=== PATIENT | male | born 1955 | race Caucasian/White ===

== ENCOUNTER 2024-02-15 16:59 | Emergency (ER) | payer BC, SELFPAY ==
[2024-02-15 17:00] VITALS: BP 135/82
--- NOTE | 2024-02-15 18:05 | ED.GENMED ---
History of Present Illness
General
Chief Complaint: Urinary Symptoms
Source: patient
Exam Limitations: none
Time Seen by Provider: 02/15/24 18:02
Nursing documentation reviewed up to this point in time: agreed with
History of Present Illness
History of Present Illness:
Patient is a 68-year-old male who presents to the ER complaining of hematuria. Patient started with blood in his urine around 12 PM. He reports it was bright red however getting a little bit darker. He has had hematuria with each episode of
urination since 12 PM. He denies any dysuria or frequency. He does not feel that he is retaining urine. He denies any abdominal pain nausea vomiting back pain fever chills. He does have history of kidney stones in the past but reports with his
kidney stones he had pain, no pain with this hematuria.
He does note that he has been taking 800 mg of ibuprofen 3 times a day for the past 4 days because of a dental procedure recently.
He is on aspirin no other blood thinners.
Review of Systems
Review of Systems
Allergies reviewed?: Yes
All Other Systems: ROS reviewed and negative except as documented in HPI and ROS
Constitutional: Reports no symptoms; Denies fever, fatigue or chills
Cardiac: Reports no symptoms
ABD/GI: Reports no symptoms; Denies abdominal pain, nausea or vomiting
: Reports bleeding; Denies frequency or difficulty voiding
Musculoskeletal: Reports no symptoms; Denies back pain
Skin: Reports no symptoms
Neurological: Reports no symptoms
Hematologic/Lymphatic: Reports no symptoms
Psychiatric: Reports no symptoms
Phy Exam
General Physical Exam
General Presentation: no apparent distress
General age: appears stated age
General Skin: warm and dry
General Habitus: normal
General Mental: alert
General Hydration: appears well hydrated
Cardiovascular Exam
Cardiovascular Exam: regular rate/rhythm, no murmur and normal peripheral pulses
Pulmonary Exam
Pulmonary Exam: lungs clear and no respiratory distress
Gastrointestinal Exam
Gastrointestinal Exam: non tender and soft
Neurological Exam
Neurological Exam: alert and oriented x3
Musculoskeletal Exam
Musculoskeletal Exam: full ROM
Skin Exam
Skin Exam: normal color and warm/dry
Psychiatric Exam
Psychiatric Exam: normal mood/affect
Course
Orders/Labs/Results
Orders:
Orders
02/15/24 18:15
IV Insert/Care/Rem.- Treatment PRN
0.9% Sodium Chloride 1000 ml [Nss] 1,000 ml IV BOLUS
02/15/24 18:24
CBC/With Diff [Complete Blood Count/With Diff] Urgent
CMP [Comprehensive Metabolic Panel] Urgent
UA Reflex to Culture [Urinalysis Reflex To Culture] Urgent
Date Specimen was Collected: 02/15/24
Time Specimen was Collected: 18:19
Urine Microscopic Reflex Cult Urgent
Urine Culture Urgent
DEB Source: U
Specimen Description:
Date Specimen was Collected: 02/15/24
Time Specimen was Collected: 18:19
02/15/24 19:19
CT Abd/pel Without Iv Or Oral Urgent
Comment:
Reason For Exam: hematuria
Abnormal Lab Results
02/15/24
18:24
Plt Count 445 H 10^3/uL
(130-400)
Absolute Monos (auto) 1.7 H 10^3/uL
(0.1-0.6)
Lymphocytes % 19.0 L %
(20.5-51.1)
Monocytes % 16.4 H %
(1.7-9.3)
BUN 21 H mg/dl
(9-20)
Calcium 10.4 H mg/dl
(8.4-10.2)
Ur Occult Blood Reflex 4+ A
(Negative)
Leukocyte Esterase Rfl Trace A
(Negative)
Urine RBC >100 A /HPF
(0-2)
Urine WBC (Reflex) 11-15 A /HPF
(0-5)
Urine Bacteria (Reflex) Few A
(Negative)
Urine Yeast Moderate A
(Negative)
02/15/24 18:24
02/15/24 18:24
Vital Signs
Initial and Last Documented VS:
Initial Vital Signs
Temp Pulse Resp BP Pulse Ox
98.3 F 83 18 135/82 94
02/15/24 17:00 02/15/24 17:00 02/15/24 17:00 02/15/24 17:00 02/15/24 17:00
Last Documented Vital Signs
Temp Pulse Resp BP Pulse Ox
98.3 F 76 18 139/89 99
02/15/24 17:00 02/15/24 19:23 02/15/24 19:23 02/15/24 19:23 02/15/24 19:23
Analytics Specialist consulted with Physician
Analytics Specialist consulted with physician?: Yes
Name of Physician Consulted: [place]
MDM/Problems Addressed
Differential Diagnosis Includes:
Not limited to hematuria, UTI, less likely stone
MDM/Problems Addressed:
Patient is a 68 male who presented with hematuria. He does have prior history of kidney stones however had no pain today with hematuria. He has greater than 100 RBCs in urine with 11�15 white blood cells few bacteria. CT does show 6 mm stone in
the prox ureter.
Patient afebrile nontoxic remains without pain here in the ER with a normal white count normal kidney function. Case discussed with urology will DC with pain medication if needed along with Flomax we will hold off on antibiotics as discussed with
urology with close outpatient follow-up.
*Radiology
Radiology exam reviewed: radiology read reviewed
*Pulse Oximetry
Patient hypoxic: no
*Critical Care Note
Total Time (30-74mins, 75-104mins- exclusive of procedures): Not Applicable
Patient Management
Discussion with other providers: [facility] Intern (urology DR Alexander )
ED Attending Note
-
Portions of this chart may have been created with voice recognition software.� Occasional wrong word or��sound alike� substitutions may have occurred due to the inherent limitations of voice recognition software.
Discharge Plan
Departure
Patient Disposition: Home (Routine Discharge)
Date of Disposition: 02/15/24
Time of Disposition: 20:43
Patient with high blood pressure during this ER visit?: Yes
Condition: Fair
Covid-19: Not Applicable
Discharge Problem:
Kidney stone
Instructions: Kidney Stone, Adult ED, BLOOD PRESSURE
Prescriptions:
New
tamsulosin [Flomax] 0.4 mg capsule
0.4 mg PO DAILY Qty: 7 0RF
oxycodone 5 mg capsule
5 mg PO Q6H PRN (Reason: Pain) Qty: 10 0RF
Referrals:
Edward Pimentel MD [Family Provider] -
Spencer Alexander MD [Active] -
Activity Restrictions/Additional Instructions:
As discussed you have a 6 mm stone .
Stay well-hydrated. Take Flomax daily this medication was sent to your pharmacy. You may take Tylenol or ibuprofen for pain however if needed a stronger pain medication was sent to your pharmacy take only as directed. This medication is a
narcotic no driving or drinking alcohol while taking this medication in addition do not take your zolpidem (sleeping medicine ) while taking this medication.
Strain urine.
Follow-up with urology call tomorrow to make an appointment as soon as possible. Return if any worsening of symptoms or increased pain nausea vomiting fever chills.
Interventions
Interventions:
*Risk Screen - Suicide Last Done: 02/15/24 17:00
*General Assessment Last Done: 02/15/24 17:00
*Neglect/Abuse Screening Last Done: 02/15/24 17:00
*ED COVID-19 Vaccine History Last Done: 02/15/24 17:00
ED-Male Genitourinary Assessment Last Done: 02/15/24 18:28
Discharge Date and Time
Print Language: SLOVENIAN
[2024-02-15] MEDS: NSS 1000 IV (18:18)
[2024-02-15 18:37] LABS: % Basophils 1.3 % (0-2); % Eosinophils 4.1 % (0-6); % Immature Granulocytes 0.4 % (0-0.5); % Monocytes 16.4 % (1.7-9.3); % Neutrophils 58.8 % (42.2-75.2); Absolute Basophils 0.1 10^3/uL (0-0.2); Absolute Eosinophils 0.4 10^3/uL (0-0.7); Absolute Monocytes 1.7 10^3/uL (0.1-0.6); Absolute Neutrophils 6.2 10^3/uL (1.4-6.5); Hematocrit 46.2 % (39.0-52.0); Hemoglobin 15.5 g/dL (13.0-18.0); Mean Corp Hgb Conc. 33.5 g/dL (33.0-37.0); Mean Corpuscular Hgb 28.7 pg (27.0-31.0); Mean Corpuscular Volume 85.6 fL (80.0-94.0); Mean Platelet Volume 9.6 fL (7.4-10.4); Nucleated Red Blood Cells % 0 % (-); Platelet Count 445 10^3/uL (130-400); Red Cell Dist. Width 13.2 % (11.5-14.5); Urine Albumin Trace (Neg - Trace); Urine Bilirubin Negative (Negative); Urine Character Slightly Cloudy (Clear); Urine Color Amber; Urine Glucose Negative (Negative); Urine Ketone Negative (Negative); Urine Leukocyte Trace (Negative); Urine Nitrite Negative (Negative); Urine Occult Blood 4+ (Negative); Urine Urobilinogen Negative (Neg - 1+); White Blood Cell Count 10.6 10^3/uL (4.8-10.8)
[2024-02-15 18:53] LABS: ALT (SGPT) 36 U/L (0-50); AST (SGOT) 30 U/L (17-59); Albumin 4.7 g/dl (3.5-5.0); Alkaline Phosphatase 96 U/L (38-126); Blood Urea Nitrogen 21 mg/dl (9-20); Calcium 10.4 mg/dl (8.4-10.2); Carbon Dioxide 26 mmol/L (22-30); Chloride 102 mmol/L (98-107); Glucose 86 mg/dl (70-99); Potassium 4.7 mmol/L (3.5-5.1); Sodium 143 mmol/L (135-145); Total Bilirubin 0.7 mg/dl (0.2-1.3); Total Protein 7.5 g/dl (6.3-8.2); eGFR > 60.00
[2024-02-15 19:00] LABS: Urine Bacteria Few (Negative); Urine Red Blood Cell >100 /HPF (0-2); Urine Yeast Moderate (Negative)
[2024-02-15 19:23] VITALS: BP 139/89; BMI 28.4
== END 2024-02-15 20:50 | disposition home or self-care (01) ==
LOC: EMR 16:59
PROVIDERS: Nurse Practitioner; EMERGENCY PHYSICIAN Emergency Medicine; FAMILY PHYSICIAN Family Medicine
DX: N20.0 Calculus of kidney (principal); Z79.82 Long term (current) use of aspirin
CPT/HCPCS: 96360; 99284; 74176; 80053; 81003; 81015; 85025; 87086

== ENCOUNTER 2024-03-16 12:31 | Inpatient (IN) | payer MEDICARE, SELFPAY ==
[2024-03-16] VITALS (26 sets, daily range): BP systolic 70–130; BP diastolic 45–81
[2024-03-16] MEDS: NSS 1000 IV ×4 (08:37→21:53)
--- NOTE | 2024-03-16 08:45 | ED.GENMED ---
History of Present Illness
General
Chief Complaint: Cold/Flu/URI Symptoms
Source: patient
Exam Limitations: none
Time Seen by Provider: 03/16/24 08:20
Nursing documentation reviewed up to this point in time: agreed with
History of Present Illness
History of Present Illness:
68 Y/O m with h/o HLD, HTN, kidney stones
here with generalized weakness an dnear syncope.
Patient says yesterday evening after eating dinner he started feeling not well with some chills and bodyaches. He noticed a scratchy throat and had mostly dry but occasionally productive cough. He started having some intermittent nausea with
periumbilical abdominal discomfort that would come and go. He had trouble sleeping because of the nausea. He never fully vomited or had any diarrhea. Patient says this morning when he got up to use the bathroom he felt very lightheaded and felt
like he was going to pass out. He was able to hold onto the wall and sit down. His family called 911. He has no significant abdominal pain currently and the nausea has improved. He feels generally weak. He has not taken anything today for fever
but had Motrin last evening for suspected fever. He did not get the flu vaccine this year.
He has had COVID vaccines previously. Patient does have a history of kidney stones and has a known stone in the right side measuring about 6 mm and is going to have a stent placed in the next week.
Phy Exam
Physical Exam
Physical Exam:
GENERAL: Alert , in no apparent distress
HEAD: ncat
EYE: pupils equal and reactive
NECK: Supple
ENT: o/p clr, . slightly dry mouth
CARDIAC: Regular rate and rhythm . no edema
LUNGS: Clear breath sounds bilaterally, no acute respiratory distress, no wheezes/rales/rhonchi
ABDOMEN: Soft, without focal tenderness, no r/g, no cvat, normal bowel sounds
back: nontender
NEUROLOGICAL: Alert and oriented, no focal neuro deficits
SKIN: Warm and dry, skin intact.
MUSCULOSKELETAL: No edema, well perfused. neg akua's sign
PSYCH: Normal and appropriate interaction.
Course
Orders/Labs/Results
Orders:
Orders
03/16/24 08:31
0.9% Sodium Chloride 1000 ml [Nss] 1,000 ml IV BOLUS
CR Chest - 2 Views Urgent
Comment:
Reason For Exam: weakness, cough
03/16/24 08:38
COVID-19 Antigen Urgent
Source: Nasal Swab
Complete Blood Count/With Diff Urgent
Comprehensive Metabolic Panel Urgent
Lipase Urgent
Troponin I Urgent
Influenza A+B Rapid Molecular Urgent
DEB Source: Nasal Swab
Specimen Description:
03/16/24 09:15
CT Abd/pel Without Iv Or Oral Urgent
Comment:
Reason For Exam: abd pain, nauesa, hypotension; konwn kidney stone
03/16/24 09:18
Ondansetron Injectable [Zofran] 4 mg IV NOW STA
03/16/24 10:27
Electrocardiogram (*1) Urgent
Reason for Study: Fatigue / Weakness
EKG- Treatment ONCE
03/16/24 10:59
Urinalysis Reflex To Culture Urgent
Date Specimen was Collected: 03/16/24
Time Specimen was Collected: 10:52
Urine Microscopic Reflex Cult Urgent
Urine Culture Urgent
DEB Source: U
Specimen Description:
Date Specimen was Collected: 03/16/24
Time Specimen was Collected: 10:52
03/16/24 11:06
LevoFLOXacin 500 MG/100 ML [Levaquin] 500 mg in 100 ml IV NOW
Abnormal Lab Results
03/16/24 03/16/24
08:38 10:59
WBC 13.5 H 10^3/uL
(4.8-10.8)
MCHC 32.9 L g/dL
(33.0-37.0)
Abs Immat Gran (auto) 0.1 H 10^3/uL
(0-0.05)
Absolute Neuts (auto) 11.0 H 10^3/uL
(1.4-6.5)
Absolute Lymphs (auto) 1.1 L 10^3/uL
(1.2-3.4)
Absolute Monos (auto) 1.2 H 10^3/uL
(0.1-0.6)
Neutrophils % 81.9 H %
(42.2-75.2)
Lymphocytes % 7.8 L %
(20.5-51.1)
Carbon Dioxide 20 L mmol/L
(22-30)
BUN 38 H mg/dl
(9-20)
Creatinine 1.6 H mg/dL
(0.7-1.3)
Glucose 187 H mg/dl
(70-99)
Calcium 10.6 H mg/dl
(8.4-10.2)
Ur Occult Blood Reflex 4+ A
(Negative)
Leukocyte Esterase Rfl 2+ A
(Negative)
03/16/24 08:38
03/16/24 08:38
Vital Signs
Initial and Last Documented VS:
Initial Vital Signs
BP
91/58
03/16/24 08:22
Last Documented Vital Signs
Temp Pulse Resp BP Pulse Ox
36.5 C 74 17 114/72 94
03/16/24 08:24 03/16/24 11:00 03/16/24 11:00 03/16/24 11:00 03/16/24 10:03
MDM/Problems Addressed
Differential Diagnosis Includes:
infected kidney stone, flu, covid, near syncope, dehydration
MDM/Problems Addressed:
68 y/o M
known R prox ureteral 6 mm stone due for stent placement next week
here with nauesa, bodyaches, chills, waxing and waning lower abd pain since yesterday
pt als ohas a mild dry cough and a scratchy throat
he nearly passed out on his way to the bathroom todya
he feels generally weak currently
no fever
nontoxic
mildly dehydrated appearing
heart/lungs clear
abd notnender
wbc 13 with L shift
SAMMY cr 1.6 from 0.9
flu/covid neg
cxr clear
ct findings: r prox rureteral stone with hydro nad stranding; concern for infected stone
urologist messaged
empiric abx
admit to medicine
*Critical Care Note
Total Time (30-74mins, 75-104mins- exclusive of procedures): Not Applicable
ED Attending Note
-
Portions of this chart may have been created with voice recognition software.� Occasional wrong word or��sound alike� substitutions may have occurred due to the inherent limitations of voice recognition software.
Discharge Plan
Departure
Patient Disposition: Admit
Date of Disposition: 03/16/24
Time of Disposition: 11:08
Admit to: Med/Surg
Presentation/result/management discussed w/ accepting MD/DO: Hospitalist
Condition: Fair
Covid-19: Not Applicable
Discharge Problem:
SAMMY (acute kidney injury), Kidney stone, Near syncope
Prescriptions:
No Action
tamsulosin [Flomax] 0.4 mg capsule
0.4 mg PO DAILY Qty: 7 0RF
omega-3 fatty acids [Fish Oil Concentrate] 1,000 mg Capsule
2,400 mg PO DAILY
atorvastatin [Lipitor] 10 mg Tablet
10 mg PO QPM
lisinopril 20 mg Tablet
20 mg PO DAILY
Theragen Tablet
1 tab PO DAILY
aspirin 81 mg Tablet,Delayed Release (Dr/Ec)
81 mg PO DAILY
meloxicam [Mobic] 7.5 mg Tablet
15 mg PO DAILY
ibuprofen [Advil] 200 mg Tablet
400 mg PO Q8HPRN PRN (Reason: mild pain)
zolpidem [Ambien] 10 mg Tablet
5 mg PO HS
bupropion HCl [Wellbutrin XL] 300 mg Tablet Extended Release 24 Hr
300 mg PO DAILY
cholecalciferol (vitamin D3) [Vitamin D3] 125 mcg (5,000 unit) Tablet
250 mcg PO DAILY
testosterone 20.25 mg/1.25 gram (1.62 %) gel in metered-dose pump
2 pump topical DAILY
Glucosamine Chondroitin 550-30-1 mg Capsule
2 cap PO DAILY
oxycodone 5 mg tablet
5 mg PO Q8HPRN PRN (Reason: severe Pain)
Referrals:
Edward Pimentel MD [Family Provider] -
Interventions
Interventions:
*Risk Screen - Suicide Last Done: 03/16/24 08:32
*General Assessment Last Done: 03/16/24 08:32
*Neglect/Abuse Screening Last Done: 03/16/24 08:32
ED- Fall Risk Assessment Last Done: 03/16/24 08:32
*ED COVID-19 Vaccine History Last Done: 03/16/24 08:32
ED- Pulmonary Assessment Last Done: 03/16/24 08:32
Discharge Date and Time
Print Language: ERITREAN
[2024-03-16 08:52] LABS: % Basophils 0.6 % (0-2); % Eosinophils 0.5 % (0-6); % Immature Granulocytes 0.5 % (0-0.5); % Lymphocytes 7.8 % (20.5-51.1); % Monocytes 8.7 % (1.7-9.3); % Neutrophils 81.9 % (42.2-75.2); Absolute Basophils 0.1 10^3/uL (0-0.2); Absolute Eosinophils 0.1 10^3/uL (0-0.7); Absolute Immature Granulocytes 0.1 10^3/uL (0-0.05); Absolute Lymphocytes 1.1 10^3/uL (1.2-3.4); Absolute Monocytes 1.2 10^3/uL (0.1-0.6); Hematocrit 51.4 % (39.0-52.0); Hemoglobin 16.9 g/dL (13.0-18.0); Mean Corp Hgb Conc. 32.9 g/dL (33.0-37.0); Mean Corpuscular Hgb 28.5 pg (27.0-31.0); Mean Corpuscular Volume 86.8 fL (80.0-94.0); Nucleated Red Blood Cells % 0 % (-); Platelet Count 364 10^3/uL (130-400); Red Blood Cell Count 5.92 10^6/uL (4.70-6.10); Red Cell Dist. Width 13.3 % (11.5-14.5); White Blood Cell Count 13.5 10^3/uL (4.8-10.8)
[2024-03-16 09:04] LABS: COVID-19 Antigen Negative (Negative)
[2024-03-16 09:06] LABS: ALT (SGPT) 28 U/L (0-50); AST (SGOT) 24 U/L (17-59); Albumin 4.9 g/dl (3.5-5.0); Alkaline Phosphatase 98 U/L (38-126); Blood Urea Nitrogen 38 mg/dl (9-20); Calcium 10.6 mg/dl (8.4-10.2); Carbon Dioxide 20 mmol/L (22-30); Chloride 104 mmol/L (98-107); Estimated Creatinine Clearance 42 ml/min; Glucose 187 mg/dl (70-99); Lipase 72 U/L (23-300); Potassium 4.7 mmol/L (3.5-5.1); Sodium 140 mmol/L (135-145); Total Bilirubin 0.6 mg/dl (0.2-1.3); Total Protein 7.4 g/dl (6.3-8.2); eGFR 46.35
[2024-03-16 09:18] LABS: Troponin I < 0.012 ng/ml
[2024-03-16] MEDS: ZOFRAN 4 MG IV (09:36)
[2024-03-16 11:09] LABS: Urine Albumin Trace (Neg - Trace); Urine Bilirubin Negative (Negative); Urine Character Slightly Cloudy (Clear); Urine Color Yellow; Urine Glucose Negative (Negative); Urine Ketone Negative (Negative); Urine Leukocyte 2+ (Negative); Urine Nitrite Negative (Negative); Urine Occult Blood 4+ (Negative); Urine Specific Gravity 1.025 (<1.030); Urine Urobilinogen Negative (Neg - 1+)
[2024-03-16] MEDS: LEVAQUIN 100 IV (11:48)
--- NOTE | 2024-03-16 12:00 | EDRN ---
Report given to DAVID Partida in the OR.
--- NOTE | 2024-03-16 12:03 | CONS.URO ---
Consultation
-
Date/Time Consultation Performed: 03/16/24 1150
Requesting Provider: Katina
Performing Provider: Yazan
Reason for Consultation: Right ureteral stone + UTI
Medical History
History of Present Illness
Pt previously in ED on 02/14 with 6 mm right proximal ureteral stone.
Schedule for OR next week with Dr Alexander.
Dr Ambriz's note: 'Patient says yesterday evening after eating dinner he started feeling not well with some chills and bodyaches. He noticed a scratchy throat and had mostly dry but occasionally productive cough. He started having some
intermittent nausea with periumbilical abdominal discomfort that would come and go. He had trouble sleeping because of the nausea.'
Past Medical History
Past Medical History: Other ( HLD, HTN)
Social History
Tobacco: Non-smoker
Personal:
Living: With Family
Employment: Employed
Family History
Family History: Reviewed & Not Pertinent
Allergies/Home Medications
Allergies
Allergy/AdvReac Type Severity Reaction Status Date / Time
Cephalosporins Allergy Unknown Verified 02/15/24 18:18
penicillin G Allergy Unknown Verified 02/15/24 18:18
Penicillins Allergy Unknown Verified 02/15/24 18:18
Home Medications
�Medication �Instructions �Recorded �Confirmed �Type
tamsulosin 0.4 mg capsule (Flomax) 0.4 mg PO DAILY #7 caps 02/15/24 03/16/24 Rx
aspirin 81 mg tablet,delayed 81 mg PO DAILY 03/16/24 03/16/24 History
release
atorvastatin 10 mg tablet (Lipitor) 10 mg PO QPM 03/16/24 03/16/24 History
bupropion HCl 300 mg 24 hr tablet, 300 mg PO DAILY 03/16/24 03/16/24 History
extended release (Wellbutrin XL)
cholecalciferol (vitamin D3) 125 250 mcg PO DAILY 03/16/24 03/16/24 History
mcg (5,000 unit) tablet (Vitamin
D3)
glucosamine sulf dipot 2 cap PO DAILY 03/16/24 03/16/24 History
chlr,msm,chond 550 mg-C 30 mg-chino
1 mg capsule (Glucosamine
Chondroitin)
ibuprofen 200 mg tablet (Advil) 400 mg PO Q8HPRN PRN mild pain 03/16/24 03/16/24 History
lisinopril 20 mg tablet 20 mg PO DAILY 03/16/24 03/16/24 History
meloxicam 7.5 mg tablet 15 mg PO DAILY 03/16/24 03/16/24 History
omega-3 fatty acids 1,000 mg 2,400 mg PO DAILY 03/16/24 03/16/24 History
capsule
oxycodone 5 mg tablet 5 mg PO Q8HPRN PRN severe Pain 03/16/24 03/16/24 History
testosterone 2 pump topical DAILY 03/16/24 03/16/24 History
therapeutic multivitamin 1 tab PO DAILY 03/16/24 03/16/24 History
zolpidem 10 mg tablet (Ambien) 5 mg PO HS 03/16/24 03/16/24 History
Physical Exam
Vital Signs
Vital Signs
Temp Pulse Resp BP Pulse Ox
97.3 F 73 16 119/73 99
03/16/24 12:01 03/16/24 12:01 03/16/24 12:01 03/16/24 12:01 03/16/24 12:01
Lab / Testing Results
Laboratory Results
03/16/24 08:38
03/16/24 08:38
Physical Exam
adult male on ED [facility]
appears ill
mildly distressed
Neuro: Awake and Alert
Psych: Calm and Intact Judgement
Assessment / Plan
-
Right Ureteral stone: 6 mm, proximal, obstructing
suspected evolving UTI/sepsis
urgently to OR for dislodgment of right ureteral stone and placement of ureteral stent
to be admitted to hospitalists for sepsis care
anticipate discharge later this week on po abx then to return next week with Dr Alexander for definitive removal of stone
OR consent signed in presence of and ED RN
Data Reviewed
-
CT Scan: Image personally visualized and interpreted
Lab Data: Labs Reviewed
Old Records: Reviewed
--- NOTE | 2024-03-16 12:06 | W.PN.UPDATE ---
Update Note
Progress Note Update
Patient seen in the ER just prior to being called to the OR for right obstructing 5 mm ureterolithiasis.
Gen: NAD, AAOx3.
Eyes: EOMI, PERRLA, no scleral icterus.
Neck: supple.
CV: RRR, +S1/S2, no m/r/g.
Resp: CTAB, no rales, wheezes, or rhonchi.
Abd: +BS, soft, NT, ND
Skin: No rashes.
Neuro: CN 2-12 intact, non-focal.
Psych: Normal mood and affect.
-additional L NS ordered
-Levaquin being hung
-admission orders placed
-case discussed with ER and Dr. Hand
-full H&P to follow post op
--- NOTE | 2024-03-16 12:13 | W.IMMPOSTOP ---
Surgical Immed Post Op Note
-
Primary Surgeon: Yazan
Pre-op Diagnosis: Right Ureteral stone: 6 mm, proximal, obstructing with suspected evolving UTI/sepsis
Post-op Diagnosis: same
Procedure Performed: cysto, dislodgement of obstructing right ureteral stone, stent placement
Anesthesia Type: LMA
Specimen / Cultures: none
Estimated Blood Loss: none
Complications: none
Operative Findings: ebris-laden urine in bladder; purulent urine propulsed from right ureter upon alleviation of obstruction
apprised in waiting area immediately post-op
[2024-03-16 14:26] LABS: Urine Mucus Few
[2024-03-16 14:27] LABS: Urine Amorphous Seen; Urine Squamous Cell 0-2 /LPF (Few)
[2024-03-16 14:28] LABS: Urine Hyaline Cast 0-2 /LPF (0-2)
[2024-03-16 14:33] LABS: Urine Red Blood Cell 30-40 /HPF (0-2)
--- NOTE | 2024-03-16 15:28 | HPS.HSE ---
Family Physician
<Binh Gruber MD, Resident - Last Filed: 03/16/24 17:19>
-
Family Physician: Edward Pimentel
Chief Complaint
<Binh Gruber MD, Resident - Last Filed: 03/16/24 17:19>
-
Lightheadedness, Weakness
History of Present Illness
Patient is a 68 yo m with past medical history of HLD, HTN, recurrent kidney stones, depression/anxiety who presented to the ED earlier this morning with generalized weakness and lightheadedness. Yesterday, he developed lower abdominal pain and
nausea. Symptoms persisted through the night disturbing his sleep. This morning, he felt lightheaded and felt like he might experience a syncope. Family called 911 and he was brought to ED.
He denies any vomiting or diarrhea. Denies eating food from outside. Denies any fevers or chills.
Patient was recently seen in ED on 02/14 and diagnosed with 6 mm right proximal ureteral stone. He was advised to follow-up with urology clinic and OR was scheduled for him with Dr. Alexander. Plan was to proceed with stone extraction and stent
placement on 03/23.
Initial labs in ED showed leukocytosis. He was mildly hypotensive upon presentation. Abdominal CT scan showed mild RIGHT hydronephrosis and proximal hydroureter secondary to a 5 mm obstructing calculus within the proximal right ureter. Mild
perinephric and periureteral stranding. Patient was started on Levaquin and given bolus fluid. Urology consulted and patient urgently taken to OR for dislodgment of right ureteral stone and placement of ureteral stent. He is admitted and will be
followed for further management of possible urosepsis.
Medical History
<Binh Gruber MD, Resident - Last Filed: 03/16/24 17:19>
Past Medical History
Past Medical History: Reports Other (See HPI)
Additional Past Medical History:
See HPI
Past Surgical History: Reports Other
Additional Past Surgical History:
Rotator cuff tear repair, ESWL and nephrolithotomy for kidney stones (at [place])
Social History
Tobacco: Non-smoker
Alcohol: None
Drug: None
Family History
Family History: Not pertinent
Allergies / Home Medications
Allergies reflects when Allergies were last updated in [employer].
Home Medications with original date entered in [employer]
Allergy/Medication List:
Allergies
Allergy/AdvReac Type Severity Reaction Status Date / Time
Cephalosporins Allergy Unknown Verified 02/15/24 18:18
penicillin G Allergy Unknown Verified 02/15/24 18:18
Penicillins Allergy Unknown Verified 02/15/24 18:18
Home Medications
tamsulosin 0.4 mg capsule (Flomax) 0.4 mg PO DAILY #7 caps 02/15/24
aspirin 81 mg tablet,delayed release 81 mg PO DAILY 03/16/24
atorvastatin 10 mg tablet (Lipitor) 10 mg PO QPM 03/16/24
bupropion HCl 300 mg 24 hr tablet, extended release (Wellbutrin XL) 300 mg PO DAILY 03/16/24
cholecalciferol (vitamin D3) 125 mcg (5,000 unit) tablet (Vitamin D3) 250 mcg PO DAILY 03/16/24
glucosamine sulf dipot chlr,msm,chond 550 mg-C 30 mg-chino 1 mg capsule (Glucosamine Chondroitin) 2 cap PO DAILY 03/16/24
ibuprofen 200 mg tablet (Advil) 400 mg PO Q8HPRN PRN mild pain 03/16/24
lisinopril 20 mg tablet 20 mg PO DAILY 03/16/24
meloxicam 7.5 mg tablet 15 mg PO DAILY 03/16/24
omega-3 fatty acids 1,000 mg capsule 2,400 mg PO DAILY 03/16/24
oxycodone 5 mg tablet 5 mg PO Q8HPRN PRN severe Pain 03/16/24
testosterone 2 pump topical DAILY 03/16/24
therapeutic multivitamin 1 tab PO DAILY 03/16/24
zolpidem 10 mg tablet (Ambien) 5 mg PO HS 03/16/24
Review of Systems
<Binh Gruber MD, Resident - Last Filed: 03/16/24 17:19>
-
History Source: Patient
A 12 point ROS was completed and negative except as noted: Yes
Constitutional: Reports See HPI
EENT: Reports See HPI
Respiratory: Reports See HPI
Cardiac: Reports See HPI
Abdomen/GI: Reports See HPI
: Reports See HPI
Musculoskeletal: Reports See HPI
Skin: Reports See HPI
Neurological: Reports See HPI
Endocrine: Reports See HPI
Hematologic/Lymphatic: Reports See HPI
Psych: Reports See HPI
Physical Exam
<Binh Gruber MD, Resident - Last Filed: 03/16/24 17:19>
Vital Signs
Vital Signs
Temp Pulse Resp BP Pulse Ox
97.4 F 69 18 122/81 95
03/16/24 14:45 03/16/24 14:45 03/16/24 14:45 03/16/24 14:45 03/16/24 14:45
Physical Exam
General: Well Developed, No Apparent Distress and Comfortable
HEENT: NormoCephalic, Anicteric and Moist mucous membranes
Respiratory: Clear
Cardiac: S1/S2 and Regular Rhythm
GI: Soft, Non Tender, Non Distended and Normal Bowel Sounds
Musculoskeletal: No Clubbing, No Cyanosis and No Edema
Skin: Warm and Dry
Neuro: Awake, Alert, Oriented and AO x 3
Psych: Calm
Laboratory Results
<Binh Gruber MD, Resident - Last Filed: 03/16/24 17:19>
-
03/16/24 08:38
03/16/24 08:38
Laboratory Results
Total Bilirubin 0.6 mg/dl (0.2-1.3) 03/16/24 08:38
AST 24 U/L (17-59) 03/16/24 08:38
ALT 28 U/L (0-50) 03/16/24 08:38
Alkaline Phosphatase 98 U/L (38-126) 03/16/24 08:38
Troponin I < 0.012 ng/ml 03/16/24 08:38
Lipase 72 U/L (23-300) 03/16/24 08:38
Impression/Plan
<Binh Gruber MD, Resident - Last Filed: 03/16/24 17:19>
-
IMPRESSION:
Patient is a 68-year-old male with past medical history of recurrent kidney stones. Presented to ED on 02/14 with gross hematuria and was diagnosed with 6 mm right proximal ureteral stone. He was on pain controls for trial of passage until OR
date, scheduled for 03/23. Earlier this morning, he developed lightheadedness and nausea. Labs revealed leukocytosis and he was urgently taken to the OR for stent placement.
# Urosepsis possibly in the setting of infected kidney stone
-Right internal double-J nephroureteral stent placed 03/16
-Levaquin started
-Continue IV fluids
-Advance diet to regular
-Maintain O2sat> 92%, encourage incentive spirometry
-Tylenol as needed for pain
-Monitor CBC, BMP
-Follow urine culture
-Anticipate SAMMY to improve after stone removal/stent placement
# Hypertension
-Hold lisinopril for now
# Hyperlipidemia
-Continue Lipitor
# Anxiety/depression
-Continue Wellbutrin
#DVT prophylaxis
-Heparin SC
CODE STATUS full code
<Garrison Lainez MD, Resident - Last Filed: 03/16/24 16:08>
-
--- NOTE | 2024-03-16 15:38 | W.PN.UPDATE ---
Update Note
Progress Note Update
I personally performed a history and physical exam of the patient and discussed management with the resident. I reviewed the resident's note and agree with the documented findings and plan of care HPI/CC.
68-year-old male who presented with a chief complaint of upper respiratory infection symptoms. Also reported near syncope, generalized weakness, chills, myalgias, dry cough, nausea, periumbilical abdominal pain.
Gen: NAD, AAOx3.
Eyes: EOMI, PERRLA, no scleral icterus.
Neck: supple.
CV: RRR, +S1/S2, no m/r/g.
Resp: CTAB, no rales, wheezes, or rhonchi.
Abd: +BS, soft, NT, ND
Skin: No rashes.
Neuro: CN 2-12 intact, non-focal.
Psych: Normal mood and affect.
Lab Results
24 03/16/24
08:38 10:59
WBC 13.5 H
RBC 5.92
Hgb 16.9
Hct 51.4
MCV 86.8
MCH 28.5
MCHC 32.9 L
RDW 13.3
Plt Count 364
MPV 10.0
Abs Immat Gran (auto) 0.1 H
Absolute Neuts (auto) 11.0 H
Absolute Lymphs (auto) 1.1 L
Absolute Monos (auto) 1.2 H
Absolute Eos (auto) 0.1
Absolute Basos (auto) 0.1
Immature Gran % 0.5
Neutrophils % 81.9 H
Lymphocytes % 7.8 L
Monocytes % 8.7
Eosinophils % 0.5
Basophils % 0.6
Nucleated RBC % 0
Sodium 140
Potassium 4.7
Chloride 104
Carbon Dioxide 20 L
BUN 38 H
Creatinine 1.6 H
Estimated Creat Clear 42
eGFR 46.35
Glucose 187 H
Calcium 10.6 H
Total Bilirubin 0.6
AST 24
ALT 28
Alkaline Phosphatase 98
Troponin I < 0.012
Total Protein 7.4
Albumin 4.9
Lipase 72
Urine Color Yellow
Urine Clarity Slightly cloudy
Urine pH 5.0
Ur Specific Entiat 1.025
Urine Ketones Negative
Ur Occult Blood Reflex 4+ A
Urine Nitrite (Reflex) Negative
Urine Bilirubin Negative
Urine Urobilinogen Negative
Leukocyte Esterase Rfl 2+ A
Urine RBC 30-40 A
Urine WBC (Reflex) 6-10
Ur Squamous Epith Cells 0-2
Ur Urothelial Cells 3-5
Amorphous Crystals Seen
Hyaline Casts 0-2
Granular Casts 3-5
Urine Mucus Few
Urine Glucose Negative
Urine Albumin (Reflex) Trace
SARS-CoV-[address] A/P: Mild RIGHT hydronephrosis and proximal hydroureter secondary to a 5 mm obstructing calculus within the proximal right ureter. Mild perinephric and periureteral stranding.
Acute right-sided hydronephrosis, urinary tract infection, and likely right-sided pyelonephritis:
-with associated SAMMY
-Patient with multiple antibiotic allergies which, based on interview, likely are not true allergies
-Continue Levaquin for now
-aggressive IVF support
-follow UCx
--- NOTE | 2024-03-16 16:09 | PTCARENOTE ---
Pt arrived from PACU at aprox 1445. Pt admission and assessment done. Pt with no pain at the time. He will order lunch. Daughter at bedside. Call mullins within reach. Pt instructed not to get OOB without assistance.
[2024-03-16] MEDS: ASPIR LOW (ENTERIC COATED) 81 MG PO (17:17)
[2024-03-16] MEDS: LIPITOR 10 MG PO (17:17)
[2024-03-16] MEDS: FLOMAX 0.4 MG PO (17:17)
[2024-03-16] MEDS: HEPARIN 5000 UNITS SC (21:26)
[2024-03-16] MEDS: DILAUDID 0.5 MG IV (21:33)
[2024-03-16] MEDS: TYLENOL 650 MG PO (23:52)
[2024-03-17] MEDS: DILAUDID 0.5 MG IV (03:14)
[2024-03-17 03:15] VITALS: BP 125/66
[2024-03-17] MEDS: NSS 1000 IV (06:17)
[2024-03-17 06:51] LABS: Hematocrit 42.2 % (39.0-52.0); Hemoglobin 14.4 g/dL (13.0-18.0); Mean Corp Hgb Conc. 34.1 g/dL (33.0-37.0); Mean Corpuscular Hgb 29.4 pg (27.0-31.0); Mean Corpuscular Volume 86.3 fL (80.0-94.0); Mean Platelet Volume 10.1 fL (7.4-10.4); Platelet Count 320 10^3/uL (130-400); Red Blood Cell Count 4.89 10^6/uL (4.70-6.10); Red Cell Dist. Width 13.7 % (11.5-14.5); White Blood Cell Count 12.8 10^3/uL (4.8-10.8)
[2024-03-17 07:17] LABS: Blood Urea Nitrogen 28 mg/dl (9-20); Calcium 8.8 mg/dl (8.4-10.2); Carbon Dioxide 19 mmol/L (22-30); Chloride 109 mmol/L (98-107); Estimated Creatinine Clearance 75 ml/min; Glucose 144 mg/dl (70-99); Potassium 4.6 mmol/L (3.5-5.1); Sodium 139 mmol/L (135-145); eGFR > 60.00
[2024-03-17 07:56] VITALS: BP 118/76
--- NOTE | 2024-03-17 09:28 | W.PN.HOSP.TC ---
Today's Communication/Plan
-
Can transition to oral antibiotics
Medically stable for discharge later in the day
Assessment / Plan
Assessment / Plan
Patient is a 68-year-old male with past medical history of recurrent kidney stones. Presented to ED on 02/14 with gross hematuria and was diagnosed with 6 mm right proximal ureteral stone. He was on pain controls for trial of passage until OR
date, scheduled for 03/23. Earlier this morning, he developed lightheadedness and nausea. Labs revealed leukocytosis and he was urgently taken to the OR for stent placement.
# Urosepsis POA possibly in the setting of infected kidney stone
-Post-op day 2 s/p right internal double-J nephroureteral stent
-D/C IV Levaquin- Can transition to Cipro 500 BID
-Continue IV fluids
-Advanced diet to regular-tolerating well
-Maintain O2sat> 92%, encourage incentive spirometry
-Pain management
-Leukocytosis trending down
-Remains afebrile
-Urine culture-negative however pus seen in OR- Will cont AB
-SAMMY resolved after stone removal/stent placement
-Hemoglobin stable
# Hypertension
-Hold lisinopril for now
# Hyperlipidemia
-Continue Lipitor
# Anxiety/depression
-Continue Wellbutrin
#DVT prophylaxis
-Heparin SC
CODE STATUS full code
Anticipated Discharge: Within 24 hours
Subjective/Interval History
-
Date of Service: March 17, 2024
Patient is resting comfortably in bed. Mentions his urine is dark red but has not seen any blood clots. Is able to pass gas. Denies any shortness of breath, chest pain, abdominal pain. Was able to tolerate lunch and dinner and does not have any
nausea or vomiting. Remains afebrile.
Objective Data
-
Labs:
Laboratory Results
03/17/24
06:40
WBC 12.8 H
Hgb 14.4
Hct 42.2
Plt Count 320
Sodium 139
Potassium 4.6
Chloride 109 H
Carbon Dioxide 19 L
BUN 28 H
Creatinine 0.9
Glucose 144 H
Calcium 8.8 D
Vital Signs:
Vital Signs
Temp Pulse Resp BP Pulse Ox
97.8 F 74 20 118/76 94
03/17/24 07:56 03/17/24 07:56 03/17/24 07:56 03/17/24 07:56 03/17/24 07:56
I&O
03/16/24 03/17/24 03/18/24
06:59 06:59 06:59
Intake Total 3350 / 3350
Output Total 1045 / 1045
Balance 2305 / 2305
Review of Systems
-
History Source: Patient
All other systems: Reviewed and negative
Genitourinary: Reports Other (Hematuria but no blood clots)
Physical Exam
-
General: Well Developed, No Apparent Distress and Comfortable
HEENT: Normocephalic, Atraumatic, Moist Mucous Membranes and Anicteric
Respiratory: Clear to Auscultation
Cardiac: Regular Rhythm and S1/S2
GI: Soft, Nontender, Nondistended and Normal Bowel Sounds
Musculoskeletal: No Clubbing, No Cyanosis and No Edema
Skin: Warm and Dry
Neuro: Awake, Alert, Oriented and AO x 3
--- NOTE | 2024-03-17 10:04 | CM ---
Patient seen at bedside.
IMM explained & signed. In chart.
IA completed
right internal double-J nephroureteral stent
Lives in a 2 story home with , 2 steps to enter, flight to second floor
PLOF: Independent, drives, no assistive device
DME: walker (his 's)
Denies food/housing/transportation/utilities insecurities
Denies VN - has had outpatient rehab in past at [facility]
PCP: Dr. Bañuelos [place]
Pharmacy: [facility]
PLAN: home, no needs
--- NOTE | 2024-03-17 10:14 | W.PN.UPDATE ---
Update Note
Progress Note Update
I saw and evaluated the patient. I reviewed the resident�s note and agree with findings and plan as documented in the resident�s note.
Patient reports hematuria. Denies abdominal pain.
Gen: NAD, AAOx3.
Eyes: EOMI, PERRLA, no scleral icterus.
Neck: supple.
CV: Remains RRR, +S1/S2, no m/r/g.
Resp: Remains CTAB, no rales, wheezes, or rhonchi.
Abd: Remains +BS, soft, NT, ND
Skin: No rashes.
Neuro: CN 2-12 intact, non-focal.
Psych: Normal mood and affect.
CT A/P: Mild RIGHT hydronephrosis and proximal hydroureter secondary to a 5 mm obstructing calculus within the proximal right ureter. Mild perinephric and periureteral stranding.
Acute right-sided hydronephrosis, urinary tract infection, and likely right-sided pyelonephritis:
-with associated SAMMY, now resolved with IVFs
-with non-AG met acidosis, change IVFs to D5W with 75meq NaHCO3/L
-Patient with multiple antibiotic allergies which, based on interview, likely are not true allergies
-despite UCx being NG, continue Levaquin as puss was expressed during R ureteral stenting pending infectious disease consult
Other problems:
Essential hypertension: Holding home ACEi
Hyperlipidemia: cont statin
Anxiety/depression: Continue Wellbutrin
FULL/Heparin
[2024-03-17] MEDS: TYLENOL 650 MG PO (10:53)
[2024-03-17] MEDS: HEPARIN 5000 UNITS SC ×2 (10:53→20:22)
[2024-03-17] MEDS: SODIUM BICARBONATE 1075 MEQ IV (10:55)
[2024-03-17] MEDS: ASPIR LOW (ENTERIC COATED) 81 MG PO (10:58)
[2024-03-17] MEDS: WELLBUTRIN XL (24 hour extended release) 300 MG PO (10:58)
[2024-03-17] MEDS: FLOMAX 0.4 MG PO (10:59)
[2024-03-17 11:32] VITALS: BP 120/72
[2024-03-17] MEDS: LEVAQUIN 100 IV (12:04)
--- NOTE | 2024-03-17 12:17 | W.DCSUMMARY ---
Addendum entered and electronically signed by Rikki Nugent MD 03/18/24 12:09:
Read, reviewed, and agree. See same day progress note for additional details.
Original Note:
Discharge Summary
Discharge Data
Date of Admission: 03/16/24
Date of Discharge: 03/18/24
-
Pending Results: No
Hospital Course
Patient is a 68-year-old male with past medical history of HLD, HTN, and recurrent nephrolithiasis. He previously presented to ED on 02/14 with gross hematuria and was diagnosed with 6 mm right proximal ureteral stone. He was placed on pain
controls for trial of passage until OR date, which was scheduled for 03/23. However, on 03/16, he developed lightheadedness and nausea and presented to the ED again. Initial labs in ED showed leukocytosis and SAMMY. He was mildly hypotensive upon
presentation. Abdominal CT scan showed mild RIGHT hydronephrosis and proximal hydroureter secondary to a 5 mm obstructing calculus within the proximal right ureter. with associated mild perinephric and periureteral stranding. Urine culture was
sent and he was started on Levaquin and IV fluid. Urology was consulted and patient was urgently taken to OR for dislodgment of right ureteral stone and placement of ureteral stent. He was then admitted for further management of SAMMY and possible
urosepsis.
Immediate postop report noted debris-laden urine in bladder with purulent urine propulsing from right ureter upon alleviation of obstruction but urine culture came back negative. However, ID was consulted and decision was made to continue with
antibiotics due to observation findings. IV Levaquin and fluids were continued during admission. SAMMY resolved after stone removal/stent placement; however, patient had metabolic acidosis post-procedure and was treated with bicarb drip. He remained
afebrile and leukocytosis trended down. Hemoglobin remained stable after surgery.
Today, SAMMY and metabolic acidosis have resolved. Patient is medically stable for discharge to home. He has been advised to contact Dr. Hand's office today or tomorrow to set an appointment for stent removal. He has also been given
instructions to continue Levaquin for an additional 4 days.
Discharge Plan
-
Patient Disposition: Home (Routine Discharge)
Discharge Diagnosis/Procedures: Obstructing right ureteral calculus associated with right hydronephrosis, acute kidney injury
Condition: Good
Diet: No restrictions
Activity: As tolerated
Driving Restrictions: As prior to admission
Bathing Restrictions: None
Instructions: Kidney stones in adults, Kidney stone diet
Referrals:
Spencer Hand MD [Active] - None
Edward Pimentel MD [Family Provider] - in less than 1 week
Spencer Alexander MD [Active] - (surgery as already scheduled)
Prescriptions:
New
acetaminophen 325 mg Tablet
650 mg PO Q8HPRN PRN (Reason: mild pain/[place]/temp> 100.4F) 7 Days Qty: 20 0RF
levofloxacin 500 mg Tablet
500 mg PO DAILY 4 Days Qty: 4 0RF
Continued
tamsulosin [Flomax] 0.4 mg capsule
0.4 mg PO DAILY Qty: 7 0RF
omega-3 fatty acids 1,000 mg Capsule
2,400 mg PO DAILY
atorvastatin [Lipitor] 10 mg Tablet
10 mg PO QPM
lisinopril 20 mg Tablet
20 mg PO DAILY
therapeutic multivitamin Tablet
1 tab PO DAILY
aspirin 81 mg Tablet,Delayed Release (Dr/Ec)
81 mg PO DAILY
zolpidem [Ambien] 10 mg Tablet
5 mg PO HS
bupropion HCl [Wellbutrin XL] 300 mg Tablet Extended Release 24 Hr
300 mg PO DAILY
cholecalciferol (vitamin D3) [Vitamin D3] 125 mcg (5,000 unit) Tablet
250 mcg PO DAILY
testosterone 20.25 mg/1.25 gram (1.62 %) gel in metered-dose pump
2 pump topical DAILY
Glucosamine Chondroitin 550-30-1 mg Capsule
2 cap PO DAILY
Discontinued
meloxicam 7.5 mg Tablet
15 mg PO DAILY
ibuprofen [Advil] 200 mg Tablet
400 mg PO Q8HPRN PRN (Reason: mild pain)
oxycodone 5 mg tablet
5 mg PO Q8HPRN PRN (Reason: severe Pain)
Discharge Orders:
Discharge Patient (As Directed); Ordered 03/18/24
Ordered By: Binh Gruber
Discharge Date and Time
Print Language: BELIZEAN
--- NOTE | 2024-03-17 12:35 | CON.ID ---
Consultation
-
Date/Time Consultation Requested: March 17, 2024 1021
Date/Time Consultation Performed: March 17, 2024 1235
Requesting Provider: Dr. Rikki Nugent
Performing Provider: Dr. Sherrill Larose
Reason for Consultation: Pyelonephritis
Chief Complaint / Past History
Chief Complaint
dizziness and weakness
History of Present Illness
68-year-old male with history of hypertension, nephrolithiasis who noted gross hematuria in February for which he presented to the ER February 14, CAT scan showed 6 mm stone in proximal right ureter without significant hydronephrosis. He was
discharged on tamsulosin and arranged for urology to place stent. However the evening of March 15, he felt extremely weak and dizzy. Also reports some flulike symptoms with chills and bodyaches. Was having abdominal discomfort. No flank pain.
He presented to the ER morning of March 16. White count 13.5. He was in SAMMY. Repeat CAT scan showed obstructing right kidney stone. He was taken to the OR the same day status post cystoscopy, dislodgment of the stone and stent placement. Of
note purulent urine seen at time of urological procedure. However the urethral urine culture resulted as no growth. Patient feels much improved today. No further abdominal discomfort or dizziness.
Past History
Additional Past Medical History:
Hypertension
Dyslipidemia
Nephrolithiasis with history of ESWL and nephrolithotomy
Anxiety/depression
Allergy History:
Cephalosporins Allergy (Verified 02/15/24 18:18)
Unknown
penicillin G Allergy (Verified 02/15/24 18:18)
Unknown
Penicillins Allergy (Verified 02/15/24 18:18)
Unknown
Medications Reviewed: Yes
Current Antibiotics:
Levofloxacin
Social History
Tobacco: Non-Smoker
Alcohol: None
Drug: None
Family History
Family History: Not Pertinent
Review of Systems
Review of Systems
General: Chills and Change in Appetite
HEENT: Negative Sinus Problems or Pharyngitis
Cardiovascular: Negative Chest Pain or Dyspnea
Respiratory: Negative Dyspnea or Cough
Gasteroenterology: Negative Nausea, Vomiting or Diarrhea
Genital / Urological: Negative Dysuria or Flank Pain
Endocrine: Weakness
All systems: All other systems were reviewed and were negative
Vital Signs
Temp Pulse Resp BP Pulse Ox
98 F 78 20 120/72 94
03/17/24 11:32 03/17/24 11:32 03/17/24 11:32 03/17/24 11:32 03/17/24 11:32
Physical Exam
Physical Exam
Constitutional: No Acute Distress and Comfortable
Eyes: No Conjunctival Hemorrhage and Sclera Anicteric
Cardiovascular: Regular Rate and S1/S2
Pulmonary: Clear
Gastrointestinal: Soft, Non Tender, Non Distended and Normal Bowel Sounds
Genito-Urinary: Negative Suprapubic Tenderness or CVA Tenderness
Neurological: AO x 3
Lab / Diagnostic Study Results
03/17/24 06:40
03/17/24 06:40
Abs Immat Gran (auto) 0.1 10^3/uL (0-0.05) H 03/16/24 08:38
Absolute Neuts (auto) 11.0 10^3/uL (1.4-6.5) H 03/16/24 08:38
Absolute Lymphs (auto) 1.1 10^3/uL (1.2-3.4) L 03/16/24 08:38
Absolute Monos (auto) 1.2 10^3/uL (0.1-0.6) H 03/16/24 08:38
Absolute Basos (auto) 0.1 10^3/uL (0-0.2) 03/16/24 08:38
Immature Gran % 0.5 % (0-0.5) 03/16/24 08:38
Neutrophils % 81.9 % (42.2-75.2) H 03/16/24 08:38
Lymphocytes % 7.8 % (20.5-51.1) L 03/16/24 08:38
Monocytes % 8.7 % (1.7-9.3) 03/16/24 08:38
Eosinophils % 0.5 % (0-6) 03/16/24 08:38
Basophils % 0.6 % (0-2) 03/16/24 08:38
Ur Squamous Epith Cells 0-2 /LPF (Few) 03/16/24 10:59
Microbiology Results
Micro:
03/16/24 10:59 Urine Culture - Final
Urine NO GROWTH
03/16/24 08:38 Influenza Types A & B (YINKA) - Final
Nasal Swab Negative for Influenza A & B, NAAT
Negative results must be combined with clinical observations
and patient history.
Nucleic Acid Amplification test (NAAT)performed on the
[employer] platform.
03/16/24 CT a/p: . Mild RIGHT hydronephrosis and proximal hydroureter secondary to a 5 mm obstructing calculus within the proximal right ureter. Mild perinephric and periureteral stranding.
Assessment / Plan
# Right obstructive uropathy s/p stent placement 03/16
# Suspected complicated UTI. Purulent urine seen at time of stent placement -> not sent for cx.
Urethal Ucx negative
Change IV levofloxacin(d2) to po levofloxacin 500mg qd through 03/22/24.
Call if any questions.
[2024-03-17 15:45] VITALS: BP 116/68
[2024-03-17] MEDS: LIPITOR 10 MG PO (18:04)
[2024-03-17] MEDS: SENOKOT-S 1 TABLET PO (20:23)
[2024-03-17 22:36] VITALS: BP 121/61
[2024-03-18] MEDS: SODIUM BICARBONATE 1075 MEQ IV (01:18)
[2024-03-18 06:22] LABS: Hematocrit 44.1 % (39.0-52.0); Hemoglobin 14.5 g/dL (13.0-18.0); Mean Corp Hgb Conc. 32.9 g/dL (33.0-37.0); Mean Corpuscular Hgb 28.8 pg (27.0-31.0); Mean Corpuscular Volume 87.7 fL (80.0-94.0); Mean Platelet Volume 10.4 fL (7.4-10.4); Platelet Count 324 10^3/uL (130-400); Red Blood Cell Count 5.03 10^6/uL (4.70-6.10); Red Cell Dist. Width 13.8 % (11.5-14.5); White Blood Cell Count 11.5 10^3/uL (4.8-10.8)
[2024-03-18 06:49] LABS: Blood Urea Nitrogen 25 mg/dl (9-20); Calcium 9.2 mg/dl (8.4-10.2); Carbon Dioxide 27 mmol/L (22-30); Chloride 103 mmol/L (98-107); Estimated Creatinine Clearance 67 ml/min; Glucose 102 mg/dl (70-99); Potassium 4.5 mmol/L (3.5-5.1); Sodium 140 mmol/L (135-145); eGFR > 60.00
--- NOTE | 2024-03-18 07:47 | W.PN.HOSP.TC ---
Today's Communication/Plan
-
Patient is stable for discharge today
Assessment / Plan
Assessment / Plan
Patient is a 68-year-old male with past medical history of recurrent kidney stones. Presented to ED on 02/14 with gross hematuria and was diagnosed with 6 mm right proximal ureteral stone. He was on pain controls for trial of passage until OR
date, scheduled for 03/23. Earlier this morning, he developed lightheadedness and nausea. Labs revealed leukocytosis and he was urgently taken to the OR for stent placement.
# Urosepsis POA possibly in the setting of infected kidney stone
-Post-op day 3 s/p right internal double-J nephroureteral stent
-Urine culture-negative however pus seen in OR- Will cont AB
-Levaquin IV switched to PO- to be continued for total of 5 doses
-Advanced diet to regular-tolerating well
-Maintain O2sat> 92%, encourage incentive spirometry
-Pain management
-Leukocytosis continues to trend down
-Remains afebrile
-SAMMY after stone removal/stent placement
-Metabolic acidosis resolved after bicarb drip/IV fluids
-Hemoglobin stable
# Hypertension
-Hold lisinopril for now
# Hyperlipidemia
-Continue Lipitor
# Anxiety/depression
-Continue Wellbutrin
#DVT prophylaxis
-Heparin SC
CODE STATUS full code
Anticipated Discharge: Today
Subjective/Interval History
-
Date of Service: March 18, 2024
Patient is comfortably in bed. Mentions hematuria has decreased. No blood clots seen in urine. Denies any nausea vomiting or abdominal pain. Denies any fevers or chills.
Objective Data
-
Labs:
Laboratory Results
03/18/24
05:17
WBC 11.5 H
Hgb 14.5
Hct 44.1
Plt Count 324
Sodium 140
Potassium 4.5
Chloride 103
Carbon Dioxide 27
BUN 25 H
Creatinine 1.0
Glucose 102 H
Calcium 9.2
Vital Signs:
Vital Signs
Temp Pulse Resp BP Pulse Ox
98.7 F 74 18 121/61 94
03/17/24 22:36 03/17/24 22:36 03/17/24 22:36 03/17/24 22:36 03/17/24 22:36
I&O
03/17/24 03/18/24 03/19/24
06:59 06:59 06:59
Intake Total 3350 / 3350 3600 / 3600
Output Total 1045 / 1045 1380 / 1380
Balance 2305 / 2305 2220 / 2220
Review of Systems
-
History Source: Patient
All other systems: Reviewed and negative
Genitourinary: Reports Other (Hematuria but no blood clots)
Physical Exam
-
General: Well Developed and No Apparent Distress
HEENT: Normocephalic
Respiratory: Clear to Auscultation
Cardiac: Regular Rhythm and S1/S2
GI: Soft, Nontender, Nondistended and Normal Bowel Sounds
Musculoskeletal: No Clubbing, No Cyanosis and No Edema
Skin: Warm and Dry
Neuro: Awake, Alert, Oriented and AO x 3
[2024-03-18 08:00] VITALS: BP 165/95
[2024-03-18] MEDS: FLOMAX 0.4 MG PO (08:39)
[2024-03-18] MEDS: LEVAQUIN 500 MG PO (08:39)
[2024-03-18] MEDS: HEPARIN 5000 UNITS SC (08:39)
[2024-03-18] MEDS: ASPIR LOW (ENTERIC COATED) 81 MG PO (08:39)
[2024-03-18] MEDS: WELLBUTRIN XL (24 hour extended release) 300 MG PO (08:40)
--- NOTE | 2024-03-18 09:38 | W.PN.UPDATE ---
Update Note
Progress Note Update
I saw and evaluated the patient. I reviewed the resident�s note and agree with findings and plan as documented in the resident�s note.
No new complaints.
Gen: NAD, AAOx3.
Eyes: EOMI, PERRLA, no scleral icterus.
Neck: supple.
CV: continues to remain RRR, +S1/S2, no m/r/g.
Resp: continues to remain CTAB, no rales, wheezes, or rhonchi.
Abd: continues to remain +BS, soft, NT, ND
Skin: No rashes.
Neuro: CN 2-12 intact, non-focal.
Psych: Normal mood and affect.
CT A/P: Mild RIGHT hydronephrosis and proximal hydroureter secondary to a 5 mm obstructing calculus within the proximal right ureter. Mild perinephric and periureteral stranding.
Acute right-sided hydronephrosis, urinary tract infection, and likely right-sided pyelonephritis:
-with associated SAMMY, now resolved with IVFs
-with non-AG met acidosis, IVFs were changed to D5W with 75meq NaHCO3/L and non-AG met acidosis has now resolved
-Patient with multiple antibiotic allergies which, based on interview, likely are not true allergies
-despite UCx being NG, continue Levaquin as puss was expressed during R ureteral stenting through 03/22/24 as per ID/Dr. Larose.
Other problems:
Essential hypertension: resume home ACEi as SAMMY has resolved
Hyperlipidemia: cont statin
Anxiety/depression: Continue Wellbutrin
FULL/Heparin
Medically cleared for discharge.
Total time spent on d/c = 31 min. This included today's physical exam, progress note, review of laboratory and diagnostic data, preparation of discharge documents and prescriptions, and discussions about the pt's hospital course and discharge plan
with the patient and other medical billing coordinator involved in the patient's care.
--- NOTE | 2024-03-18 10:27 | CM ---
Pt for discharge today
Has ride home per pt
Discussed IMM
Plan - home no needs
[2024-03-18] MEDS: PREVNAR 20 0.5 ML IM (11:32)
[2024-03-18] MEDS: FLUAD (65 yr+) 2024-2025 FORMULA 0.5 ML IM (11:35)
[2024-03-18] MEDS: ZESTRIL 20 MG PO (11:37)
[2024-03-18 11:55] VITALS: BP 144/95
[2024-03-18] MEDS: TYLENOL 650 MG PO (11:55)
== END 2024-03-18 12:44 | disposition home or self-care (01) | DRG 660 ==
LOC: 2 SOUTH 12:31
PROVIDERS: Physician Assistant; ADMITTING PHYSICIAN Internal Medicine; EMERGENCY PHYSICIAN Student in an Organized Health Care Education/Training Program; FAMILY PHYSICIAN Family Medicine; OTHER PHYSICIAN Internal Medicine Infectious Disease; OTHER PHYSICIAN Specialist
PROC: 0WCR8ZZ Extirpation of Matter from Genitourinary Tract, Via Natural or Artificial Opening Endoscopic (ICD-10-PCS; 2024-03-16)
PROC: 0T768DZ Dilation of Right Ureter with Intraluminal Device, Via Natural or Artificial Opening Endoscopic (ICD-10-PCS; 2024-03-16)
DX: N20.2 Calculus of kidney with calculus of ureter (principal); E87.20 Acidosis, unspecified; N13.6 Pyonephrosis; N17.9 Acute kidney failure, unspecified; I95.9 Hypotension, unspecified; I10 Essential (primary) hypertension; E78.5 Hyperlipidemia, unspecified; F41.9 Anxiety disorder, unspecified; F32.A Depression, unspecified; Z11.52 Encounter for screening for COVID-19
CPT/HCPCS: 71046; 74018; 74176; 76000; 80048; 80053; 81003; 81015; 83690; 84484; 85025; 85027; 87086; 87502; 87811; 90662; 90677; 93005; 96361; 96374; 96375; 99285; 99406; C2617; G0008; G0009

== ENCOUNTER 2024-03-19 15:28 | Inpatient (IN) | payer MEDICARE, SELFPAY ==
[2024-03-19] VITALS (12 sets, daily range): BP systolic 118–157; BP diastolic 69–100; BMI 27.1
[2024-03-19 11:32] LABS: Glucose - Point of Care 104 mg/dl (70-99)
--- NOTE | 2024-03-19 11:56 | ED.CVA ---
History of Present Illness
General
Chief Complaint: Facial Problem
Source: patient
Exam Limitations: none
Time Seen by Provider: 03/19/24 11:31
Nursing documentation reviewed up to this point in time: agreed with
Course
Orders/Labs/Results
Orders:
Orders
03/19/24 11:43
CT Head W/o Iv Contrast Urgent
Comment:
Reason For Exam: L facial weakness
03/19/24 11:45
Electrocardiogram (*1) Urgent
Reason for Study: Other
Other Reason for Exam: stroke
EKG- Treatment ONCE
03/19/24 11:47
Complete Blood Count/With Diff Urgent
Comprehensive Metabolic Panel Urgent
Abnormal Lab Results
03/19/24
11:31
POC Glucose 104 H mg/dl
(70-99)
Vital Signs
Initial and Last Documented VS:
Initial Vital Signs
Temp Pulse Resp BP Pulse Ox
98.0 F 79 16 149/89 98
03/19/24 11:22 03/19/24 11:22 03/19/24 11:22 03/19/24 11:22 03/19/24 11:22
Last Documented Vital Signs
Temp Pulse Resp BP Pulse Ox
98.0 F 78 16 143/95 99
03/19/24 11:22 03/19/24 11:32 03/19/24 11:22 03/19/24 11:32 03/19/24 11:33
ED Attending Note
-
Portions of this chart may have been created with voice recognition software.� Occasional wrong word or��sound alike� substitutions may have occurred due to the inherent limitations of voice recognition software.
Discharge Plan
Departure
Prescriptions:
No Action
tamsulosin [Flomax] 0.4 mg capsule
0.4 mg PO DAILY Qty: 7 0RF
omega-3 fatty acids 1,000 mg Capsule
2,400 mg PO DAILY
atorvastatin [Lipitor] 10 mg Tablet
10 mg PO QPM
lisinopril 20 mg Tablet
20 mg PO DAILY
therapeutic multivitamin Tablet
1 tab PO DAILY
aspirin 81 mg Tablet,Delayed Release (Dr/Ec)
81 mg PO DAILY
zolpidem [Ambien] 10 mg Tablet
5 mg PO HS
bupropion HCl [Wellbutrin XL] 300 mg Tablet Extended Release 24 Hr
300 mg PO DAILY
cholecalciferol (vitamin D3) [Vitamin D3] 125 mcg (5,000 unit) Tablet
250 mcg PO DAILY
testosterone 20.25 mg/1.25 gram (1.62 %) gel in metered-dose pump
2 pump topical DAILY
Glucosamine Chondroitin 550-30-1 mg Capsule
2 cap PO DAILY
acetaminophen 325 mg Tablet
650 mg PO Q8HPRN PRN (Reason: mild pain/[place]/temp> 100.4F) 7 Days Qty: 20 0RF
levofloxacin 500 mg Tablet
500 mg PO DAILY 4 Days Qty: 4 0RF
Interventions
Interventions:
*Risk Screen - Suicide Last Done: 03/19/24 11:22
*General Assessment Last Done: 03/19/24 11:22
*Neglect/Abuse Screening Last Done: 03/19/24 11:22
ED- Fall Risk Assessment Last Done: 03/19/24 11:33
*ED COVID-19 Vaccine History Last Done: 03/19/24 11:22
ED- Pulmonary Assessment Last Done: 03/19/24 11:33
ED- Neurological Assessment Last Done: 03/19/24 11:33
ED- Cardiac Assessment Last Done: 03/19/24 11:33
ED Swallowing Screen Last Done: 03/19/24 11:33
Discharge Date and Time
Print Language: GERMAN
[2024-03-19 11:57] LABS: % Basophils 1.1 % (0-2); % Eosinophils 2.5 % (0-6); % Immature Granulocytes 0.6 % (0-0.5); % Lymphocytes 14.4 % (20.5-51.1); % Monocytes 10.6 % (1.7-9.3); % Neutrophils 70.8 % (42.2-75.2); Absolute Basophils 0.1 10^3/uL (0-0.2); Absolute Eosinophils 0.3 10^3/uL (0-0.7); Absolute Immature Granulocytes 0.1 10^3/uL (0-0.05); Absolute Lymphocytes 1.8 10^3/uL (1.2-3.4); Absolute Monocytes 1.3 10^3/uL (0.1-0.6); Absolute Neutrophils 8.9 10^3/uL (1.4-6.5); Hematocrit 47.3 % (39.0-52.0); Hemoglobin 16.3 g/dL (13.0-18.0); Mean Corp Hgb Conc. 34.5 g/dL (33.0-37.0); Mean Corpuscular Hgb 29.1 pg (27.0-31.0); Mean Corpuscular Volume 84.3 fL (80.0-94.0); Nucleated Red Blood Cells % 0 % (-); Platelet Count 378 10^3/uL (130-400); Red Blood Cell Count 5.61 10^6/uL (4.70-6.10); Red Cell Dist. Width 13.1 % (11.5-14.5); White Blood Cell Count 12.6 10^3/uL (4.8-10.8)
--- NOTE | 2024-03-19 11:57 | ED.GENMED ---
History of Present Illness
General
Chief Complaint: Facial Problem
Source: patient
Exam Limitations: none
Time Seen by Provider: 03/19/24 11:31
Nursing documentation reviewed up to this point in time: agreed with
History of Present Illness
History of Present Illness:
The patient is a 68-year-old man who was just discharged from [facility] after being treated for kidney stone, who reports that he woke up this morning with drooping of the left side of his face. Patient reports that he was previously
feeling well last night. He feels like his face is twisted and when his words come out, they sound slightly slurred. Patient denies any weakness in the arms and legs. He reports tearing of the left eye. Patient denies a history of Steve's palsy.
Patient denies headache and fever. He denies rash.
Past History
Past History
ED Past Medical History: HTN and Other (Kidney stones)
ED Past Surgical History: Urological
Social History
Tobacco: Non-smoker
Alcohol: Other
Drug: None
Personal:
Living: with family
Employment: Other
Family History
Family History: Other
Review of Systems
Review of Systems
Allergies reviewed?: Yes
All Other Systems: ROS reviewed and negative except as documented in HPI and ROS
Constitutional: Reports no symptoms
EENT: Reports other
Respiratory: Reports no symptoms
Cardiac: Reports no symptoms
ABD/GI: Reports no symptoms
: Reports no symptoms
Musculoskeletal: Reports no symptoms
Skin: Reports no symptoms
Neurological: Reports weakness
Endocrine: Reports no symptoms
Hematologic/Lymphatic: Reports no symptoms
Psychiatric: Reports no symptoms
Phy Exam
Physical Exam
Physical Exam:
Physical Exam
General: Obvious left facial droop. Appears well and comfortable
Neck: supple. no meningeal signs. normal psoterior pharynx
Heart: s1/s2 regular rate and rhythm
Lungs: no acute respiratory distress. clear bilaterally
Abdomen: normal bowel sounds. not tender. no CVAT
Neuro: alert and orientedx3. Left facial droop. Drooping of left forehead and eyebrow. 5 out of 5 strength in all extremities. Extraocular muscles intact. Equal sensation bilaterally.
Skin: no rash
Psychiatric: well kept. interactive and cooperative
Extremities: no edema. no calf tenderness. negative homans. good distal pulses
Course
Orders/Labs/Results
Orders:
Orders
03/19/24 11:43
CT Head W/o Iv Contrast Urgent
Comment:
Reason For Exam: L facial weakness
03/19/24 11:45
Electrocardiogram (*1) Urgent
Reason for Study: Other
Other Reason for Exam: stroke
EKG- Treatment ONCE
03/19/24 11:47
Complete Blood Count/With Diff Urgent
03/19/24 12:06
Comprehensive Metabolic Panel Urgent
Lyme Progressive Urgent
Comment: ADD ON
03/19/24 12:49
Add On- LAB Urgent
Tests Added?: lyme progressive
03/19/24 14:05
0.9% Sodium Chloride 1000 ml [Nss] 1,000 ml IV BOLUS
03/19/24 14:41
Urinalysis Reflex To Culture Urgent
Date Specimen was Collected: 03/19/24
Time Specimen was Collected: 14:46
03/19/24 15:03
Admit/Transfer Patient As Directed
Co-Sign Provider:
Level of Care: Inpatient admission
Assign to:: Telemetry
Physician / Group: stacie
Diagnosis: bells palsy, sammy
Reason for Telemetry: Arrhythmia
Date to Stop Telemetry: 03/22/24
Time to Stop Telemetry: 11:00
Reason for Hospitalization: bells palsy, sammy
Expected length of stay greater than two midnights?: Yes
ELOS- Estimated Length of Stay in days: 2
I certify the patient meets the requirements for IP care: Yes
03/19/24 15:04
Code Status As Directed
Resuscitation Status: Full Code
PRN Pain Medication Management As Directed
May give lesser potent ordered pain med per pt: Yes
preference::
Protocol:: Medication orders for pain may be administered in a
manner that supports deferring to patient preference
when the pt is:
- Requesting an ordered lesser potent pain medication.
Least to most potent pain medications are defined
as: acetaminophen < NSAID < tramadol < opioids
(morphine, oxycodone, hydromorphone).
- Requesting a lesser dose of the same medication IF
ORDERED.
- Requesting a less intrusive route of administration
if both routes are prescribed by the provider (PO <
IV).
03/19/24 15:10
Valacyclovir HCl [Valtrex] 1,000 mg PO NOW STA
03/19/24 15:11
Prednisone [Deltasone] 60 mg PO NOW STA
03/22/24 11:00
DC Protocol for Telemetry ONCE
Abnormal Lab Results
03/19/24 03/19/24 03/19/24
11:31 11:47 12:06
WBC 12.6 H 10^3/uL
(4.8-10.8)
Abs Immat Gran (auto) 0.1 H 10^3/uL
(0-0.05)
Absolute Neuts (auto) 8.9 H 10^3/uL
(1.4-6.5)
Absolute Monos (auto) 1.3 H 10^3/uL
(0.1-0.6)
Immature Gran % 0.6 H %
(0-0.5)
Lymphocytes % 14.4 L %
(20.5-51.1)
Monocytes % 10.6 H %
(1.7-9.3)
Chloride 114 H mmol/L
(98-107)
Carbon Dioxide 19 L mmol/L
(22-30)
BUN 73 H mg/dl
(9-20)
Creatinine 2.0 H mg/dL
(0.7-1.3)
Total Bilirubin 2.5 H mg/dl
(0.2-1.3)
Alkaline Phosphatase 338 H U/L
(38-126)
POC Glucose 104 H mg/dl
(70-99)
03/19/24 11:47
03/19/24 12:06
Vital Signs
Initial and Last Documented VS:
Initial Vital Signs
Temp Pulse Resp BP Pulse Ox
98.0 F 79 16 149/89 98
03/19/24 11:22 03/19/24 11:22 03/19/24 11:22 03/19/24 11:22 03/19/24 11:22
Last Documented Vital Signs
Temp Pulse Resp BP Pulse Ox
98.0 F 78 16 143/95 99
03/19/24 11:22 03/19/24 11:32 03/19/24 14:00 03/19/24 11:32 03/19/24 14:00
MDM/Problems Addressed
Differential Diagnosis Includes:
Acute CVA, Steve's palsy
MDM/Problems Addressed:
Patient presents with acute left facial weakness
Chronic conditions affecting care: HTN
Acute Exacerbation and/or Progression of Chronic Illness: HTN
*Radiology
Radiology exam reviewed: radiology read reviewed
*Pulse Oximetry
Patient hypoxic: no
*EKG
Interpreted by ED Provider?: Yes
Interpretation: normal
Comparison EKG: no comparison EKG present
Rate: normal
Rhythm: sinus
[place]: normal axis
Interval: normal interval
QRS Pattern: normal QRS
Ischemia: no ischemia
*Cable Tender Interpretation
Rate: normal
Interpretation: normal
Rhythm: sinus
*Critical Care Note
Total Time (30-74mins, 75-104mins- exclusive of procedures): Not Applicable
Data Reviewed
Review of Other/Old Records Reveals: Labs (Creatinine yesterday was 1.0) and Discharge Summary (Discharge summary reviewed from hospitalist from 03/17/2024 when patient was admitted for renal injury and kidney stone)
Source: patient and family (Daughter who is at the bedside)
Patient Management
Social determinants of health affecting care: Living situation and Strong social support
Discussion with other providers: Hospitalist
Escalation/DeEscalation of care consider admission/obs:
Given patient's increased creatinine and white blood cell count, decision made to admit the patient. Dr. Alexander made aware. Symptoms are consistent with Steve's palsy and not stroke
ED Attending Note
-
Portions of this chart may have been created with voice recognition software.� Occasional wrong word or��sound alike� substitutions may have occurred due to the inherent limitations of voice recognition software.
Discharge Plan
Departure
Patient Disposition: Admit
Date of Disposition: 03/19/24
Time of Disposition: 14:49
Admit to: Med/Surg
Presentation/result/management discussed w/ accepting MD/DO: Hospitalist
Patient with high blood pressure during this ER visit?: Yes
Condition: Fair
Covid-19: Not Applicable
Discharge Problem:
Steve's palsy, SAMMY (acute kidney injury)
Prescriptions:
No Action
omega-3 fatty acids 1,000 mg Capsule
2,400 mg PO DAILY
atorvastatin [Lipitor] 10 mg Tablet
10 mg PO QPM
lisinopril 20 mg Tablet
20 mg PO DAILY
therapeutic multivitamin Tablet
1 tab PO DAILY
aspirin 81 mg Tablet,Delayed Release (/Ec)
81 mg PO DAILY
zolpidem [Ambien] 10 mg Tablet
5 mg PO HS
Patient Comments:
03/19/24: filled #90 - 10mg tablets/90 day supply on 12/16/[address] [facility] #[id number]
bupropion HCl [Wellbutrin XL] 300 mg Tablet Extended Release 24 Hr
300 mg PO DAILY
cholecalciferol (vitamin D3) [Vitamin D3] 125 mcg (5,000 unit) Tablet
250 mcg PO DAILY
testosterone 20.25 mg/1.25 gram (1.62 %) gel in metered-dose pump
2 pump topical DAILY
Glucosamine Chondroitin 550-30-1 mg Capsule
2 cap PO DAILY
acetaminophen 325 mg Tablet
650 mg PO Q8HPRN PRN (Reason: mild pain/HOUSTON/temp> 100.4F) 7 Days Qty: 20 0RF
meloxicam 7.5 mg tablet
15 mg PO DAILY
tamsulosin [Flomax] 0.4 mg capsule
0.4 mg PO DAILY
levofloxacin 500 mg tablet
500 mg PO DAILY
Interventions
Interventions:
*Risk Screen - Suicide Last Done: 03/19/24 11:22
*General Assessment Last Done: 03/19/24 11:22
*Neglect/Abuse Screening Last Done: 03/19/24 11:22
ED- Fall Risk Assessment Last Done: 03/19/24 11:33
*ED COVID-19 Vaccine History Last Done: 03/19/24 11:22
ED-Skin Assessment Last Done: 03/19/24 12:02
ED- Pulmonary Assessment Last Done: 03/19/24 11:33
ED- Neurological Assessment Last Done: 03/19/24 11:33
ED- Cardiac Assessment Last Done: 03/19/24 11:33
ED Swallowing Screen Last Done: 03/19/24 11:33
Discharge Date and Time
Print Language: TAMAZIGHT
[2024-03-19 12:30] LABS: ALT (SGPT) 31 U/L (0-50); AST (SGOT) 59 U/L (17-59); Albumin 4.2 g/dl (3.5-5.0); Alkaline Phosphatase 338 U/L (38-126); Blood Urea Nitrogen 73 mg/dl (9-20); Calcium 9.3 mg/dl (8.4-10.2); Carbon Dioxide 19 mmol/L (22-30); Chloride 114 mmol/L (98-107); Glucose 98 mg/dl (70-99); Potassium 4.7 mmol/L (3.5-5.1); Sodium 145 mmol/L (135-145); Total Bilirubin 2.5 mg/dl (0.2-1.3); Total Protein 7.3 g/dl (6.3-8.2); eGFR 35.46
[2024-03-19] MEDS: NSS 1000 IV ×2 (14:16→18:23)
--- NOTE | 2024-03-19 15:11 | HPS.HSE ---
Family Physician
-
Family Physician: Edward Pimentel
Chief Complaint
-
left facial droop
History of Present Illness
68-year-old male past medical history of hyperlipidemia, hypertension, recurrent kidney stones, anxiety/depression presenting for drooping of the left side of the face since this morning. He was feeling well last night. He feels like his face is
twisted and when his words, they are slightly slurred. He denies any weakness in the arms or legs. He has tearing of the left eye. Denies history of Steve's palsy. Denies headache or fever. Denies any focal weakness. Denies numbness or
tingling. Denies vertigo or dizziness.
He denies any abdominal pain. He denies nausea or vomiting. He has been constipated and has not had a bowel movement in more than a day.
Patient was admitted from 03/16 to 03/18 for nephrolithiasis. He previously presented to [facility] on 02/14 with gross hematuria and was diagnosed with 6 mm right proximal ureteral stone. OR was scheduled for 03/23. 03/16 he developed
lightheadedness and nausea and came to the emergency room again. He had leukocytosis, mildly hypotensive with SAMMY. CT scan showed 5 mm obstructing calculus within the proximal right ureter associate with mild perinephric and periureteral
stranding. He was treated with Levaquin and urology was consulted and took him to the operating room for dislodgment of right ureteral stone and placement of ureteral stent. Patient was treated for SAMMY and metabolic acidosis which resolved.
He denies smoking or alcohol use.
Medical History
Past Medical History
Past Medical History: Reports Other (hyperlipidemia, hypertension, recurrent kidney stones, anxiety/depression)
Past Surgical History: Reports None
Social History
Tobacco: Non-smoker
Alcohol: Occasional
Drug: None
Family History
Family History: Not pertinent
Allergies / Home Medications
Allergies reflects when Allergies were last updated in [employer].
Home Medications with original date entered in [employer]
Allergy/Medication List:
Allergies
Allergy/AdvReac Type Severity Reaction Status Date / Time
Penicillins Allergy childhood Verified 03/19/24 11:32
Home Medications
aspirin 81 mg tablet,delayed release 81 mg PO DAILY Blood Clot Prevention/Tx 03/16/24
atorvastatin 10 mg tablet (Lipitor) 10 mg PO QPM High Cholesterol 03/16/24
bupropion HCl 300 mg 24 hr tablet, extended release (Wellbutrin XL) 300 mg PO DAILY depression/anxiety 03/16/24
cholecalciferol (vitamin D3) 125 mcg (5,000 unit) tablet (Vitamin D3) 250 mcg PO DAILY Supplement 03/16/24
glucosamine sulf dipot chlr,msm,chond 550 mg-C 30 mg-chino 1 mg capsule (Glucosamine Chondroitin) 2 cap PO DAILY Supplement 03/16/24
lisinopril 20 mg tablet 20 mg PO DAILY Blood Pressure 03/16/24
omega-3 fatty acids 1,000 mg capsule 2,400 mg PO DAILY Supplement 03/16/24
testosterone 2 pump topical DAILY Hormonal Agent 03/16/24
therapeutic multivitamin 1 tab PO DAILY Supplement 03/16/24
zolpidem 10 mg tablet (Ambien) 5 mg PO HS Sleep 03/16/24
acetaminophen 325 mg tablet 650 mg (2 x 325 mg) PO Q8HPRN PRN mild pain/HOUSTON/temp> 100.4F 7 days #20 tabs 03/18/24
levofloxacin 500 mg tablet 500 mg PO DAILY thru 03/22/24 03/19/24
meloxicam 7.5 mg tablet 15 mg PO DAILY Pain 03/19/24
tamsulosin 0.4 mg capsule (Flomax) 0.4 mg PO DAILY Urinary Issue 03/19/24
Review of Systems
-
History Source: Patient
A 12 point ROS was completed and negative except as noted: Yes
Constitutional: Reports No Symptoms
EENT: Reports No Symptoms
Respiratory: Reports No Symptoms
Cardiac: Reports No Symptoms
Abdomen/GI: Reports No Symptoms
: Reports No Symptoms
Musculoskeletal: Reports No Symptoms
Skin: Reports No Symptoms
Neurological: Reports See HPI
Endocrine: Reports No Symptoms
Hematologic/Lymphatic: Reports No Symptoms
Psych: Reports No Symptoms
Physical Exam
Vital Signs
Vital Signs
Temp Pulse Resp BP Pulse Ox
98.0 F 78 16 143/95 99
03/19/24 11:22 03/19/24 11:32 03/19/24 14:00 03/19/24 11:32 03/19/24 14:00
Physical Exam
General: Well Developed, Well Nourished and No Apparent Distress
HEENT: NormoCephalic, Moist mucous membranes and Atraumatic
Respiratory: Clear
Cardiac: S1/S2 and Regular Rhythm; No Murmur or Rub
GI: Soft, Non Tender, Non Distended and Normal Bowel Sounds; No Organomegaly
Rectal: Deferred by Provider
Musculoskeletal: No Clubbing, No Cyanosis and No Edema
Skin: No Rash
Neuro: Other (left upper and lower face weakness )
Laboratory Results
-
03/19/24 11:47
03/19/24 12:06
Laboratory Results
Total Bilirubin 2.5 mg/dl (0.2-1.3) H 03/19/24 12:06
AST 59 U/L (17-59) 03/19/24 12:06
ALT 31 U/L (0-50) 03/19/24 12:06
Alkaline Phosphatase 338 U/L (38-126) H 03/19/24 12:06
Data Reviewed
-
Lab Data: Labs Reviewed by me
Old Records: Reviewed
Impression/Plan
-
IMPRESSION:
PLAN:
# Significant left-sided facial droop involving upper/lower face
-Patient has drooping of the left forehead and eyebrow and lower face
-CT head no acute abnormality
-Valacyclovir, prednisone to be started
-Neurology consulted
# Acute kidney injury concerning for potential stent obstruction
# Recent right JJ stent placement on 03/16
-No prerenal losses
-No abdominal or urinary symptoms
-IV fluids
-Hold lisinopril, meloxicam
-Urinalysis pending
-Urology consulted
Recent urosepsis secondary to obstructive ureteral stone status post JJ stent on the right on 03/16
-Continue tamsulosin
-Levaquin to be continued until 03/22
Essential hypertension
Hyperlipidemia
-Continue statin
Anxiety/depression
-Continue bupropion
Full code
DVT prophylaxis�SCDs
Regular diet
[2024-03-19] MEDS: DELTASONE 60 MG PO (15:20)
[2024-03-19] MEDS: VALTREX 1000 MG PO ×2 (15:20→21:59)
[2024-03-19 15:31] LABS: Urine Albumin 1+ (Neg - Trace); Urine Bilirubin Negative (Negative); Urine Character Clear (Clear); Urine Color Yellow; Urine Glucose Negative (Negative); Urine Ketone Negative (Negative); Urine Leukocyte 1+ (Negative); Urine Nitrite Negative (Negative); Urine Occult Blood 4+ (Negative); Urine Specific Gravity 1.015 (<1.030); Urine Urobilinogen Negative (Neg - 1+)
--- NOTE | 2024-03-19 15:37 | CON.NEURO ---
Consultation
Order
Date of Consultation: 03/19/24
Requesting Provider: Aydee Pederson M.D.
Reason for Consult: Fawnskin' palsy
Neurology Consultation Note.
HPI: This is a 68-year-old right-handed male who presented to [facility] with facial weakness. According to the patient he had woke up with the left left facial asymmetry and inability to close his left eye. No reports of motor,
sensory or visual deficits. Patient denied having headaches, fever, rash or sick contacts.
PMH: HTN, DLP, obstructive uropathy, nephrolithiasis, dyslipidemia, vitamin D deficiency, MDD
PSH: Bilateral rotator cuff repair,
SH: , retired from maintenance, non-smoker, social alcohol use.
FH: Mother in her 40s from heart related issues, father had stroke in his 60s
All: Penicillins
ROS:Constitutional: Negative. Negative for chills, fever and unexpected weight change.
HENT: Negative for ear pain, hearing loss, tinnitus and trouble swallowing.
Eyes: Negative. Negative for photophobia, pain and visual disturbance.
Respiratory: Negative for cough, choking and shortness of breath.
Cardiovascular: Negative for chest pain, palpitations and leg swelling.
Gastrointestinal: Negative for abdominal pain and vomiting.
Endocrine: Negative. Negative for cold intolerance.
Genitourinary: Positive for hematuria
Musculoskeletal: Negative for back pain, gait problem, neck pain and neck stiffness.
Skin: Negative for rash.
Allergic/Immunologic: Negative. Negative for immunocompromised state.
Neurological: posiitve for facial weakness
Psychiatric/Behavioral: Negative for behavioral problems, confusion and hallucinations.
General: Well developed. In no acute distress.
Cardio: Regular rate and rhythm without murmur. Extremities are without cyanosis or edema.
Neuro:
Mental Status: Alert, oriented to person, place, and date. Normal attention and recall. Good fund of knowledge. Follows complex requests across the midline. Comprehension, naming, and repetition intact. Immediate and delayed recall 3/3.
Cranial Nerves: . Pupils are equally round and reactive to light. EOMs full. Visual arboleda full to confrontation. No ptosis. No nystagmus. V1-V3 intact to light touch and pinprick bilaterally, symmetric. L LMN CN VII palsy. Normal hearing AU.
The palate elevated well. SCMs and traps 5/5. Tongue midline. No dysarthria.
Motor: Normal bulk and tone. No pronator or arm drift. Strength 5/5 throughout. No clonus.
Reflexes: 2+ throughout the upper extremities and knees. 2/2 in AJs. Plantar responses flexor bilaterally.
Sensory: Normal pinprick, vibration and JPS.
Coordination: No dysmetria or tremor.
Gait: deferred
Assessment and Plan:
I. Acute Left CN VII palsy. The prognosis of Steve's palsy is very good. Approximately 70 % of patients are expected to recover spontaneously by three to six months.
II. Nephrolithiasis
III. AKA.
-Please check Lyme ab. FLOYD, anti SSA/SSB can be considered if high clinical suspicion;
-Corneal injury prevention: apply artificial tears (liquid or gel) QID and up to hourly, if needed, and eye protection (eg, glasses or goggles) to protect from trauma during waking and artificial tears ointment and tape the eyelid shut( an eye patch
without taping as this leaves the cornea exposed) during sleep
- Prednisone 60 mg daily for 5 days followed by a five-day taper by 10 mg per with strict glycemic control
-It remains uncertain whether antiviral therapy adds benefit to glucocorticoids in patients with new-onset Steve's palsy, despite many trials and a good rationale. Coadministration of Valacyclovir 1000 mg TID for 7 days along with glucocorticoids is
recommended for patients with severe facial defined as House-Brackmann grade IV or higher.
-Patients with incomplete recovery of facial function following Steve's palsy can have varying degrees of facial weakness, hypertonia, and synkinesis, with functional problems related to incomplete eye closure, brow ptosis, and nasal valve collapse.
-OP Neurology follow up in 3 months
I personally reviewed all radiology and labs along with past medical records pertinent to current medical problems. Total time spent in patient care is 60 minutes.
Thank you for allowing us to participate in the care of this patient. Please do not hesitate to contact us with any questions or concerns.
Subjective/Objective
Subjective Data
Date of Service: March 19, 2024
Objective Data
Vital Signs
Temp Pulse Resp BP Pulse Ox
36.7 C 73 16 133/100 96
03/19/24 11:22 03/19/24 15:30 03/19/24 14:00 03/19/24 15:30 03/19/24 15:23
Lab Results
03/19/24 11:47
03/19/24 12:06
Sodium 145 mmol/L (135-145) 03/19/24 12:06
Potassium 4.7 mmol/L (3.5-5.1) 03/19/24 12:06
BUN 73 mg/dl (9-20) H 03/19/24 12:06
Glucose 98 mg/dl (70-99) 03/19/24 12:06
Calcium 9.3 mg/dl (8.4-10.2) 03/19/24 12:06
Patient Allergies
Penicillins Allergy (Verified 03/19/24 11:32)
childhood
Medications
-
Home Medications
�Medication �Instructions �Recorded
aspirin 81 mg tablet,delayed 81 mg PO DAILY Blood Clot 03/16/24
release Prevention/Tx
atorvastatin 10 mg tablet (Lipitor) 10 mg PO QPM High Cholesterol 03/16/24
bupropion HCl 300 mg 24 hr tablet, 300 mg PO DAILY depression/anxiety 03/16/24
extended release (Wellbutrin XL)
cholecalciferol (vitamin D3) 125 250 mcg PO DAILY Supplement 03/16/24
mcg (5,000 unit) tablet (Vitamin
D3)
glucosamine sulf dipot 2 cap PO DAILY Supplement 03/16/24
chlr,msm,chond 550 mg-C 30 mg-chino
1 mg capsule (Glucosamine
Chondroitin)
lisinopril 20 mg tablet 20 mg PO DAILY Blood Pressure 03/16/24
omega-3 fatty acids 1,000 mg 2,400 mg PO DAILY Supplement 03/16/24
capsule
testosterone 2 pump topical DAILY Hormonal Agent 03/16/24
therapeutic multivitamin 1 tab PO DAILY Supplement 03/16/24
zolpidem 10 mg tablet (Ambien) 5 mg PO HS Sleep 03/16/24
acetaminophen 325 mg tablet 650 mg (2 x 325 mg) PO Q8HPRN PRN 03/18/24
mild pain/HOUSTON/temp> 100.4F 7 days
#20 tabs
levofloxacin 500 mg tablet 500 mg PO DAILY thru 03/22/24 03/19/24
meloxicam 7.5 mg tablet 15 mg PO DAILY Pain 03/19/24
tamsulosin 0.4 mg capsule (Flomax) 0.4 mg PO DAILY Urinary Issue 03/19/24
Vital Signs and Labs
-
Vital Signs and Labs:
Vital Signs
Temp Pulse Resp BP Pulse Ox
36.7 C 77 16 148/78 92
03/19/24 11:22 03/19/24 17:30 03/19/24 17:30 03/19/24 17:30 03/19/24 17:30
Lab Results
03/19/24 11:47
03/19/24 12:06
Sodium 145 mmol/L (135-145) 03/19/24 12:06
Potassium 4.7 mmol/L (3.5-5.1) 03/19/24 12:06
BUN 73 mg/dl (9-20) H 03/19/24 12:06
Glucose 98 mg/dl (70-99) 03/19/24 12:06
Calcium 9.3 mg/dl (8.4-10.2) 03/19/24 12:06
Medications
-
Medications:
Generic Name Dose Route Start Last Admin
Trade Name Freq PRN Reason Stop Dose Admin
Acetaminophen 650 mg 03/19/24 17:52
Acetaminophen 325 Mg Tablet PO 04/16/24 17:51
Q8HPRN PRN
mild pain/HOUSTON/temp> 100.4F
Aspirin 81 mg 03/20/24 08:00
Aspirin 81 Mg (Enteric Coated) Tablet PO 04/17/24 07:59
DAILY DAVID
Atorvastatin Calcium 10 mg 03/19/24 18:00 03/19/24 18:23
Atorvastatin (Lipitor) 10 Mg Tablet PO 04/16/24 17:59 10 mg
QPM DAVID Administration
Bupropion HCl 150 mg 03/20/24 08:00
Bupropion (24hr) Extended Release 150 Mg Tablet PO 04/17/24 07:59
DAILY DAVID
Cholecalciferol 250 mcg 03/20/24 08:00
Cholecalciferol (Vitamin D3) 125 Mcg Tablet (5,000 Units) PO 04/17/24 07:59
DAILY DAVID
Sodium Chloride 1,000 mls @ 100 mls/hr 03/19/24 17:52 03/19/24 18:23
Nss IV 1,000 mls
.Q10H DAVID Administration
Levofloxacin 250 mg 03/20/24 08:00
Levofloxacin 250 Mg Tablet PO
DAILY DAVID
Multivitamins Therapeutic 1 tablet 03/20/24 08:00
Multivitamin Tablet PO 04/17/24 07:59
DAILY DAVID
Prednisone 60 mg 03/20/24 08:00
Prednisone 20 Mg Tablet PO 04/17/24 07:59
DAILY DAVID
Sodium Chloride 0 flush 03/19/24 19:00
Sodium Chloride 0.9% (Flush) Syringe IV 04/16/24 18:59
PER PROTOCOL DAVID
Tamsulosin HCl 0.4 mg 03/20/24 08:00
Tamsulosin 0.4 Mg Capsule PO 04/17/24 07:59
DAILY DAVID
Valacyclovir HCl 1,000 mg 03/19/24 22:00
Valacyclovir Hcl 500 Mg Tablet PO 03/29/24 21:59
BID DAVID
Zolpidem Tartrate 5 mg 03/19/24 22:00
Zolpidem Tartrate 5 Mg Tablet PO 04/16/24 21:59
HS DAVID
Home Medications
-
Home Medications
aspirin 81 mg tablet,delayed release 81 mg PO DAILY Blood Clot Prevention/Tx 03/16/24
atorvastatin 10 mg tablet (Lipitor) 10 mg PO QPM High Cholesterol 03/16/24
bupropion HCl 300 mg 24 hr tablet, extended release (Wellbutrin XL) 300 mg PO DAILY depression/anxiety 03/16/24
cholecalciferol (vitamin D3) 125 mcg (5,000 unit) tablet (Vitamin D3) 250 mcg PO DAILY Supplement 03/16/24
glucosamine sulf dipot chlr,msm,chond 550 mg-C 30 mg-chino 1 mg capsule (Glucosamine Chondroitin) 2 cap PO DAILY Supplement 03/16/24
lisinopril 20 mg tablet 20 mg PO DAILY Blood Pressure 03/16/24
omega-3 fatty acids 1,000 mg capsule 2,400 mg PO DAILY Supplement 03/16/24
testosterone 2 pump topical DAILY Hormonal Agent 03/16/24
therapeutic multivitamin 1 tab PO DAILY Supplement 03/16/24
zolpidem 10 mg tablet (Ambien) 5 mg PO HS Sleep 03/16/24
acetaminophen 325 mg tablet 650 mg (2 x 325 mg) PO Q8HPRN PRN mild pain/[place]STON/temp> 100.4F 7 days #20 tabs 03/18/24
levofloxacin 500 mg tablet 500 mg PO DAILY thru 03/22/24 03/19/24
meloxicam 7.5 mg tablet 15 mg PO DAILY Pain 03/19/24
tamsulosin 0.4 mg capsule (Flomax) 0.4 mg PO DAILY Urinary Issue 03/19/24
[2024-03-19 15:40] LABS: Urine Red Blood Cell >100 /HPF (0-2)
--- NOTE | 2024-03-19 18:21 | PTCARENOTE ---
pt presents from ED via stretcher. pt is AAO*3, Vss. room air. Denies any pain at this time. pt oriented to the room. call harpreet gonzalezin the reach. plan of care ongoing.
[2024-03-19] MEDS: LIPITOR 10 MG PO (18:23)
[2024-03-19] MEDS: AMBIEN 5 MG PO (21:59)
[2024-03-19] MEDS: LEVAQUIN 250 MG PO (21:59)
[2024-03-20 03:11] VITALS: BP 133/86
[2024-03-20] MEDS: NSS 1000 IV (04:19)
[2024-03-20 06:56] LABS: % Basophils 0.2 % (0-2); % Eosinophils 0.4 % (0-6); % Immature Granulocytes 0.5 % (0-0.5); % Lymphocytes 13.8 % (20.5-51.1); % Monocytes 12.5 % (1.7-9.3); % Neutrophils 72.6 % (42.2-75.2); Absolute Immature Granulocytes 0.1 10^3/uL (0-0.05); Absolute Lymphocytes 1.4 10^3/uL (1.2-3.4); Absolute Monocytes 1.3 10^3/uL (0.1-0.6); Absolute Neutrophils 7.6 10^3/uL (1.4-6.5); Hematocrit 47.4 % (39.0-52.0); Hemoglobin 15.6 g/dL (13.0-18.0); Mean Corp Hgb Conc. 32.9 g/dL (33.0-37.0); Mean Corpuscular Hgb 28.6 pg (27.0-31.0); Mean Corpuscular Volume 86.8 fL (80.0-94.0); Mean Platelet Volume 9.9 fL (7.4-10.4); Nucleated Red Blood Cells % 0 % (-); Platelet Count 369 10^3/uL (130-400); Red Blood Cell Count 5.46 10^6/uL (4.70-6.10); Red Cell Dist. Width 13.2 % (11.5-14.5); White Blood Cell Count 10.4 10^3/uL (4.8-10.8)
[2024-03-20 07:30] VITALS: BP 161/101
[2024-03-20 07:32] LABS: ALT (SGPT) 23 U/L (0-50); AST (SGOT) 19 U/L (17-59); Albumin 4.1 g/dl (3.5-5.0); Alkaline Phosphatase 86 U/L (38-126); Blood Urea Nitrogen 23 mg/dl (9-20); Calcium 9.5 mg/dl (8.4-10.2); Carbon Dioxide 25 mmol/L (22-30); Chloride 105 mmol/L (98-107); Estimated Creatinine Clearance 84 ml/min; Glucose 142 mg/dl (70-99); Potassium 4.5 mmol/L (3.5-5.1); Sodium 138 mmol/L (135-145); Total Bilirubin 0.3 mg/dl (0.2-1.3); Total Protein 6.5 g/dl (6.3-8.2); eGFR > 60.00
[2024-03-20] MEDS: DELTASONE 60 MG PO (07:56)
[2024-03-20] MEDS: ASPIR LOW (ENTERIC COATED) 81 MG PO (07:56)
[2024-03-20] MEDS: VITAMIN D3 (cholecalciferol) 250 MCG PO (07:57)
[2024-03-20] MEDS: LEVAQUIN 250 MG PO (07:57)
[2024-03-20] MEDS: FLOMAX 0.4 MG PO (07:57)
[2024-03-20] MEDS: VALTREX 1000 MG PO (07:58)
[2024-03-20] MEDS: THERAGRAN 1 TABLET PO (07:58)
[2024-03-20] MEDS: WELLBUTRIN XL (24 hour extended release) 150 MG PO (07:58)
--- NOTE | 2024-03-20 08:42 | W.PN.HOSP.TC ---
Today's Communication/Plan
-
Norvasc
Discharge later today
Assessment / Plan
Assessment / Plan
68yo M presenting with sudden-onset left left facial asymmetry and inability to close his left eye. No reports of motor, sensory or visual deficits. Also, initial labs suggested SAMMY.
Patient was recently discharged on 03/18 following stone removal and right ureteral stent placement. Of note, patient received flu vaccine and Pneumovax upon discharge.
Head CT (03/19):
Unenhanced CT imaging of the head reveals no findings to suggest recent infarction, intracranial hemorrhage, extra-axial fluid collection, mass effect or midline shift. The ventricles, cisterns and sulci are within the limits of normal for age. The
brainstem and posterior fossa structures demonstrate no significant focal abnormality.
# Acute Left facial nerve palsy
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
-Unlikely to be TIA/stroke-CT head does not show any acute abnormality
-Receiving valacyclovir and prednisone
-Neurology following-cleared by neuro for discharge
# Acute kidney injury POA
-Resolved this a.m.
-s/p right stent placement on 03/16
-No evident source for prerenal failure
-Not retaining urine
-Receiving N/S fluids @100cc/hr
-Lisinopril and meloxicam held
-Urinalysis positive for hematuria with more than 100 RBCs
-1+ albuminuria-blood glucose is okay
-Urology consulted- TT with Dr. Alexander: he is cleared for DC from Uro standpoint
# History of BPH
-Continue tamsulosin
# Recent possible urosepsis
- Cont levaquin to be continued until 03/22
#Essential hypertension
- Lisinopril held due to SAMMY
- Cont aspirin
#Hyperlipidemia
-Continue Lipitor
#Anxiety/depression
-Continue Wellbutrin
Anticipated Discharge: Today
Subjective/Interval History
-
Date of Service: March 20, 2024
Patient concerned about elevated blood pressure. Was told lisinopril held because of SAMMY. Will start him on Norvasc.
Objective Data
-
Labs:
Laboratory Results
03/20/24
06:32
WBC 10.4
Hgb 15.6
Hct 47.4
Plt Count 369
Sodium 138
Potassium 4.5
Chloride 105
Carbon Dioxide 25
BUN 23 H
Creatinine 0.8
Glucose 142 H
Calcium 9.5
Total Bilirubin 0.3 D
AST 19
ALT 23
Alkaline Phosphatase 86
Vital Signs:
Vital Signs
Temp Pulse Resp BP Pulse Ox
97.5 F 75 18 161/101 97
03/20/24 07:30 03/20/24 07:30 03/20/24 07:30 03/20/24 07:30 03/20/24 07:30
I&O
03/19/24 03/20/24 03/21/24
06:59 06:59 06:59
Intake Total 360 / 360
Balance 360 / 360
Review of Systems
-
History Source: Patient
All other systems: Reviewed and negative
EENT: Reports Tearing (excessive tearing of left eye)
Abdomen/GI: Reports Other (Difficulty chewing food)
Physical Exam
-
General: Well Developed and No Apparent Distress
HEENT: Normocephalic, Moist Mucous Membranes, Anicteric and Other (left eye patch d/t excessive lacrimation, saggy left eyebrow, hearing intact, no dysphagia)
Respiratory: Clear to Auscultation
Cardiac: Regular Rhythm and S1/S2
GI: Soft, Nontender, Nondistended and Normal Bowel Sounds
Musculoskeletal: No Clubbing, No Cyanosis and No Edema
Skin: Warm and Dry
Neuro: Awake, Alert, Oriented, AO x 3, No Motor Deficits (Left side facial weakness), No Sensory Deficits, Slurred Speech and Facial Droop (left-sided)
--- NOTE | 2024-03-20 10:01 | CONS.URO ---
Consultation
-
Performing Provider: Peffer
Reason for Consultation: Kidney stone, SAMMY
Medical History
History of Present Illness
68M newly known to me for kidney stones
History of b/l stones with a R ureteral stone
Was scheduled for surgery 03/23 but was admitted with pain, nausea, leukocytosis
He was taken to the OR for R stent placement 03/16
HE presented again to the ER 03/19 with facial weakness and dx with Steve's palsy
Labs showed SAMMY and some elevated liver enzymes/bilirubin
These are normalized this AM
Past Medical History
Past Medical History: Other (Kidney stone, hypogonadism)
Social History
Tobacco: Non-smoker
Alcohol: None
Drug: None
Family History
Family History: Reviewed & Not Pertinent
Allergies/Home Medications
Allergies
Allergy/AdvReac Type Severity Reaction Status Date / Time
Penicillins Allergy childhood Verified 03/19/24 17:58
Home Medications
�Medication �Instructions �Recorded �Confirmed �Type
aspirin 81 mg tablet,delayed 81 mg PO DAILY Blood Clot 03/16/24 03/19/24 History
release Prevention/Tx
atorvastatin 10 mg tablet (Lipitor) 10 mg PO QPM High Cholesterol 03/16/24 03/19/24 History
bupropion HCl 300 mg 24 hr tablet, 300 mg PO DAILY depression/anxiety 03/16/24 03/19/24 History
extended release (Wellbutrin XL)
cholecalciferol (vitamin D3) 125 250 mcg PO DAILY Supplement 03/16/24 03/19/24 History
mcg (5,000 unit) tablet (Vitamin
D3)
glucosamine sulf dipot 2 cap PO DAILY Supplement 03/16/24 03/19/24 History
chlr,msm,chond 550 mg-C 30 mg-chino
1 mg capsule (Glucosamine
Chondroitin)
lisinopril 20 mg tablet 20 mg PO DAILY Blood Pressure 03/16/24 03/19/24 History
omega-3 fatty acids 1,000 mg 2,400 mg PO DAILY Supplement 03/16/24 03/19/24 History
capsule
testosterone 2 pump topical DAILY Hormonal Agent 03/16/24 03/19/24 History
therapeutic multivitamin 1 tab PO DAILY Supplement 03/16/24 03/19/24 History
zolpidem 10 mg tablet (Ambien) 5 mg PO HS Sleep 03/16/24 03/19/24 History
acetaminophen 325 mg tablet 650 mg (2 x 325 mg) PO Q8HPRN PRN 03/18/24 03/19/24 Rx
mild pain/[place]/temp> 100.4F 7 days
#20 tabs
levofloxacin 500 mg tablet 500 mg PO DAILY thru 03/22/24 03/19/24 03/19/24 History
meloxicam 7.5 mg tablet 15 mg PO DAILY Pain 03/19/24 03/19/24 History
tamsulosin 0.4 mg capsule (Flomax) 0.4 mg PO DAILY Urinary Issue 03/19/24 03/19/24 History
Physical Exam
Vital Signs
Vital Signs
Temp Pulse Resp BP Pulse Ox
97.5 F 75 18 161/101 97
03/20/24 07:30 03/20/24 07:30 03/20/24 07:30 03/20/24 07:30 03/20/24 07:30
Lab / Testing Results
Laboratory Results
03/20/24 06:32
03/20/24 06:32
Physical Exam
General: Well Developed, Well Nourished and No Apparent Distress
Respiratory: Clear and Non Labored Respirations
GI: Soft and Non Tender
Genito-urinary: No Costovertebral Tend
Neuro: AO x 3
Psych: Calm and Intact Judgement
Assessment / Plan
-
68M with b/l renal stones, obstructing R ureteral stone
Admitted with pain and possible infection s/p stent placement 03/16
Readmitted for [place] palsy and lab abnormalities
- SAMMY resolved, creatinine normal. BUN/creat suggests prerenal cause
- Alk phos/bili also normal today and leukocytosis resolved
- Stable for discharge from standpoint
- Continue daily levaquin
- Follow up as scheduled for ureteroscopy 03/23 for stone removal - discussed with neurology and no contraindication to proceeding in setting of new [place] palsy
--- NOTE | 2024-03-20 10:10 | W.PN.UPDATE ---
Update Note
Progress Note Update
I saw and evaluated the patient. I reviewed the resident�s note and agree with findings and plan as documented in the resident�s note.
Gen: NAD, AAOx3.
Neck: supple.
CV: RRR, +S1/S2, no m/r/g.
Resp: CTAB, no rales, wheezes, or rhonchi.
Abd: +BS, soft, NT, ND
Skin: No rashes.
Neuro: L-sided Steve's Palsy.
Psych: Normal mood and affect.
Significant left-sided facial droop involving upper/lower face:
-Dx'd with Steve's Palsy
-seen by neuro
-CT head no acute abnormality
-started on Valacyclovir, prednisone which will continue as per neuro recs on d/c
Acute kidney injury concerning for potential stent obstruction:
-Recent right JJ stent placement on 03/16
-No prerenal losses
-No abdominal or urinary symptoms
-resolved with IV fluids
-Meloxicam was stopped on 03/17/23 d/c instructions. Patient will be instructed not to restart this. Also will not restart FLOYD inhibitor.
-Urology saw in consultation and has cleared the patient for discharge.
Recent urosepsis secondary to obstructive ureteral stone status post JJ stent on the right on 03/16
-Continue tamsulosin
-Levaquin to be continued until 03/22
-Ureteral stent to be removed 03/23
Essential hypertension:
-will not restart ACEi with SAMMY
-replace with Norvasc
Hyperlipidemia
-Continue statin
Anxiety/depression
-Continue bupropion
FULL/SCD
Total time spent on d/c = 33 min. This included today's physical exam, progress note, review of laboratory and diagnostic data, preparation of discharge documents and prescriptions, and discussions about the pt's hospital course and discharge plan
with the patient and other medical record retrieval specialist involved in the patient's care.
[2024-03-20 10:27] VITALS: BP 152/95
[2024-03-20] MEDS: NORVASC 10 MG PO (10:37)
[2024-03-20 11:52] LABS: Glycohemoglobin (HgbA1c) 5.8 % (4.0-5.6)
[2024-03-20 13:43] VITALS: BP 128/87
--- NOTE | 2024-03-20 14:03 | W.DCSUMMARY ---
Addendum entered and electronically signed by Rikki Nugent MD 03/21/24 08:59:
Read, reviewed, and agree. See same day progress note for additional details.
Original Note:
Discharge Summary
Discharge Data
Date of Admission: 03/19/24
Date of Discharge: 03/20/24
-
Pending Results: No
Hospital Course
Patient is a 68 yo male presenting with sudden-onset left left facial asymmetry and inability to close his left eye without any other motor, sensory or visual deficits. Patient was recently discharged on 03/18 following stone removal and right
ureteral stent placement. Of note, patient received flu vaccine and Pneumovax upon discharge.
Upon initial evaluation in the ED, hemodynamics were stable. Labs showed leukocytosis and SAMMY. Head CT was done:
Head CT (03/19):
Unenhanced CT imaging of the head reveals no findings to suggest recent infarction, intracranial hemorrhage, extra-axial fluid collection, mass effect or midline shift. The ventricles, cisterns and sulci are within the limits of normal for age. The
brainstem and posterior fossa structures demonstrate no significant focal abnormality.
Neurology was consulted who believed symptoms are consistent with Steve's palsy. Patient was started on valacyclovir 1 g twice daily, prednisone 60 mg, and was given artificial tears for left eye.
Lisinopril and meloxicam were held and fluid therapy started. Levaquin was continued for possible recent urosepsis. Urology was consulted who cleared him for discharge and advised to follow up as scheduled for ureteroscopy on 03/23 for stent
removal.
Today, SAMMY and leukocytosis of resolved. Per neurology, prednisone 60 mg daily should be continued for 5 days followed by a five-day taper by 10 mg with strict glycemic control. Also, Valacyclovir to be continued for total of 7 days. Patient was
advised to follow-up with neurology as outpatient in 3 months. Also, to follow-up with urology on 03/23. Lisinopril, meloxicam and zolpidem stopped on discharge. Norvasc 10 is started for BP control.
Discharge Plan
-
Patient Disposition: Home (Routine Discharge)
Discharge Diagnosis/Procedures: Acute kidney injury, Steve's palsy
Condition: Fair
Diet: Low Fat, Low Cholesterol and Low Sodium
Activity: No restrictions and As tolerated
Driving Restrictions: Not until seen by your Dr
Activity Restrictions/Additional Instructions:
Follow up with Dr. Hand's office as scheduled for ureteroscopy on 03/23
Instructions: Steve's palsy
Referrals:
Edward Pimentel MD [Family Provider] - in less than 1 week
Prescriptions:
New
valacyclovir 500 mg Tablet
1,000 mg PO BID 6 Days Qty: 24 0RF
amlodipine 10 mg Tablet
10 mg PO DAILY 30 Days Qty: 30 0RF
prednisone 10 mg tablet
10 mg PO DIRECTED Qty: 33 0RF
Rx Instructions:
Taper: 60mg daily x 3 days, 50mg x 1 day, 40mg x 1 day, 30mg x 1 day, 20mg x 1 day, 10mg x 1 day
Artificial Tears (PF) Dropperette
1 drp ophthalmic (eye) TID-QID Qty: 32 0RF
Continued
omega-3 fatty acids 1,000 mg Capsule
2,400 mg PO DAILY
atorvastatin [Lipitor] 10 mg Tablet
10 mg PO QPM
therapeutic multivitamin Tablet
1 tab PO DAILY
aspirin 81 mg Tablet,Delayed Release (Dr/Ec)
81 mg PO DAILY
bupropion HCl [Wellbutrin XL] 300 mg Tablet Extended Release 24 Hr
300 mg PO DAILY
cholecalciferol (vitamin D3) [Vitamin D3] 125 mcg (5,000 unit) Tablet
250 mcg PO DAILY
testosterone 20.25 mg/1.25 gram (1.62 %) gel in metered-dose pump
2 pump topical DAILY
Glucosamine Chondroitin 550-30-1 mg Capsule
2 cap PO DAILY
acetaminophen 325 mg Tablet
650 mg PO Q8HPRN PRN (Reason: mild pain/[place]/temp> 100.4F) 7 Days Qty: 20 0RF
tamsulosin [Flomax] 0.4 mg capsule
0.4 mg PO DAILY
levofloxacin 500 mg tablet
500 mg PO DAILY
Discontinued
lisinopril 20 mg Tablet
20 mg PO DAILY
zolpidem [Ambien] 10 mg Tablet
5 mg PO HS
Patient Comments:
03/19/24: filled #90 - 10mg tablets[facility] day [id number]
meloxicam 7.5 mg tablet
15 mg PO DAILY
Discharge Orders:
Discharge Patient (As Directed); Ordered 03/20/24
Ordered By: Rikki Nugent
Discharge Date and Time
Print Language: ITALIAN
[2024-03-22 15:57] LABS: Lyme Antibody Screen, EIA Negative (Negative)
== END 2024-03-20 15:26 | disposition home or self-care (01) | DRG 683 ==
LOC: 4 EAST ACU 15:28
PROVIDERS: ADMITTING PHYSICIAN Hospitalist; ATTENDING PHYSICIAN Internal Medicine; CONSULT PHYSICIAN Psychiatry & Neurology Neurology; CONSULT PHYSICIAN Urology; EMERGENCY PHYSICIAN Emergency Medicine; FAMILY PHYSICIAN Family Medicine
DX: N17.9 Acute kidney failure, unspecified (principal); N20.2 Calculus of kidney with calculus of ureter; I10 Essential (primary) hypertension; F32.9 Major depressive disorder, single episode, unspecified; F41.9 Anxiety disorder, unspecified; G51.0 Bell's palsy; E78.49 Other hyperlipidemia
CPT/HCPCS: 70450; 80053; 81003; 81015; 82962; 83036; 85025; 86618; 87086; 93005; 96360; 99285

== ENCOUNTER 2024-03-23 06:13 | Day surgery (SDC) | payer MEDICARE, SELFPAY ==
[2024-03-23] VITALS (8 sets, daily range): BP systolic 120–132; BP diastolic 76–85; BMI 27.8
[2024-03-23] MEDS: TYLENOL 1000 MG PO (10:02)
[2024-03-23] MEDS: NORMOSOL-R/PLASMALYTE-A 1000 IV (10:02)
[2024-03-28 20:35] LABS: Stone Analysis Mass 23 mg
== END 2024-03-23 14:31 | disposition home or self-care (01) ==
LOC: SDS 06:13
PROVIDERS: ATTENDING PHYSICIAN Urology; FAMILY PHYSICIAN Family Medicine
DX: N20.1 Calculus of ureter (principal)
CPT/HCPCS: 52356; 74018; 76000; 82365; A4300; C1758; C1769; C1894; C2617